=== PATIENT | female | born 1950 | race African-American/Black ===

== ENCOUNTER 2018-05-27 11:45 | Emergency (ER) | payer MEDICARE ==
[~2018-05-27] VITALS: Ht 157.5 cm; Wt 53.2 kg
[~2018-05-27 11:45] MED LIST: ATIVAN1 MG PO; BACTRIM 400-801 TAB PO; CATAPRES0.3 MG PO; CRANBERRY475 MG PO; HYDRALAZINE HCL10 MG PO; HYDRALAZINE HCL50 MG PO; LABETALOL PO; LANTUS INSULIN10 ML INJ; LANTUS INSULIN10 ML SC; LASIX40 MG PO; LONITEN2.5 MG PO; NORMODYNE / TR200 MG PO; NORVASC10 MG PO; PLAVIX75 MG PO; PROVERA10 MG PO; RENVELA800 MG PO; ROCALTROL0.25 MCG PO; SODIUM BICARBO650 MG PO; SYNTHROID100 MCG PO; SYNTHROID125 MCG PO; TRANDATE100 MG PO; TRANDATE200 MG PO; TYLENOL ARTHRITIS PO; ZESTRIL40 MG PO; ZOCOR40 MG PO
[2018-05-27 11:48] VITALS: Ht 157.5 cm; Wt 53.2 kg
[2018-05-27 12:37] LABS: BASOPHILS 0.9 % (0-2); EOSINOPHILS 5.3 % (0-7); HEMOGLOBIN 13.3 g/dL (12-16); IMMATURE GRANULOCYTES 0.3 % (0-5); LYMPHOCYTES 26.3 % (15-50); MCH 30.8 pg (26.0-34.0); MCHC 32.4 g/dL (31.0-37.0); MCV 94.9 fL (80.0-100.0); MEAN PLATELET VOLUME 9.6 fL (7.4-10.4); MONOCYTES 12.9 % (2-11); NEUTROPHILS 54.3 % (40-80); RBC 4.32 10x6/uL (4.00-5.40); WBC 3.2 10x3/uL (4.8-10.8)
[2018-05-27 12:45] LABS: PLATELET COUNT 209 10x3/uL (130-400)
[2018-05-27 12:54] LABS: ALBUMIN 3.9 g/dL (3.4-5.0); ALKALINE PHOSPHATASE 73 U/L (46-116); ALT (SGPT) 20 U/L (10-68); BILIRUBIN - TOTAL 0.64 mg/dL (0.2-1.3); CALC OSMOLALITY 280 mosm/kg (275-300); CALCIUM 9.1 mg/dL (8.5-10.1); CARBON DIOXIDE 32.4 mmol/L (21.0-32.0); CHLORIDE - SERUM 99 mmol/L (98-107); CREATININE - SERUM 5.1 mg/dL (0.6-1.3); GLUCOSE 115 mg/dL (74-106); POTASSIUM - SERUM 4.5 mmol/L (3.5-5.1); PROTEIN - SERUM 7.4 g/dL (6.4-8.2); SODIUM 139 mmol/L (136-145); UREA NITROGEN 19 mg/dL (7-18); eGFR NON AFRICAN AMERICAN 9 mL/min (90-120)
[2018-05-27 13:08] LABS: CKMB 1.5 U/L (0.0-3.6); CREATINE KINASE 141 UL (21-215); MAGNESIUM - SERUM 1.9 mg/dL (1.8-2.4); PRO BNP 5600 pg/mL (0-125)
[2018-05-27 13:09] LABS: TROPONIN-I < 0.017 ng/mL (0.000-0.060)
[2018-05-27 13:16] LABS: INR 0.98 (0.85-1.17); PROTIME 12.6 SECONDS (11.6-15.0)
[2018-05-27 13:17] LABS: APTT 34.3 SECONDS (22.8-39.4)
[2018-05-27 13:18] LABS: D-DIMER-QUANTITATIVE 0.71 ug/mLFEU (0.20-0.54)
[2018-05-27 16:27] VITALS: BP 208/96
== END 2018-05-27 16:21 | disposition home or self-care (01) ==
LOC: D.ER 11:45
PROVIDERS: Family Medicine
DX: R07.89 Other chest pain (principal); E11.9 Type 2 diabetes mellitus without complications; I10 Essential (primary) hypertension; I44.4 Left anterior fascicular block

== ENCOUNTER 2019-03-20 09:33 | Inpatient (IN) | payer MEDICARE ==
[~2019-03-20] VITALS: Ht 157.5 cm; Wt 70.9 kg
[2019-03-20] VITALS (9 sets, daily range): BP systolic 155–179; BP diastolic 83–97; BMI 26.2
--- NOTE | ~2019-03-20 | HEMODYNAMI ---
PATIENT:FRANCES BECKER MEDICAL RECORD: [id number] : 52 LOCATION[facility] [id number] ADMISSION DATE: 03/21/19 Generatedon:03/23/201911:51 Patient name: FRANCES BECKER Patient #: [id number] SSN: : 1950 Date of study: 03/23/2019 Page: Of Hemodynamic Procedure Report Patient Data Patient Demographics Procedure consent was obtained First Name: FRANCES Gender: Female Last Name: ROSITA : 1950 Middle Initial: M Age: 68 year(s) Patient #: [id number] Race: Black Additional ID: [id number] Contact details [address]: [address] [place] [address] State: [place] City: [place] Zip code: [address] Admission Admission Data Admission Date: 03/21/2019 Admission Time: 17:11 Room #: 2137 Procedure Procedure Types Cath Procedure Peripheral Cath Diagnostic Procedure Abd/Extremity Extremities Procedure Description Procedure Date Procedure Date: 03/23/2019 Procedure Start Time: 9:35 Procedure Staff Name Hilda Daniels MD Performing Physician Gerardo Zhao RT Monitor ROBYN ELIZALDE RT Scrub Susan Cobb RN Nurse Joelle Culp RN Nurse Procedure Data Cath Procedure Fluoroscopy Diagnostic fluoroscopy Total fluoroscopy Time: 42 time: 42 min min Diagnostic fluoroscopy Total fluoroscopy dose: 590 dose: 590 mGy mGy Contrast Material Contrast Material Type Amount (ml) Isovue 300 110 Entry Location Entry Primary Successful Side Size Upsize 1 Upsize Entry Closure [place] ccessful Closure Location (Fr) (Fr) 2 (Fr) Remarks Device Remarks Femoral Left 5 Fr 6 Fr Exoseal artery Mid-Length Diagnostic catheters Device Type Used For End Catheter Placement Merit Impress COBRA 2 5Fr 65CM catheter ([id number]) Procedure Medications Medication Administration Route Dosage Heparin Flush Bag added to field 3 bags (1000units/500ml NS) Lidocaine 1% added to field 20 Fentanyl I.V. 25 mcg Versed I.V. 0.5 mg Fentanyl I.V. 25 mcg Versed I.V. 0.5 mg Heparin Bolus I.V. 5000 units Fentanyl I.V. 25 mcg Versed I.V. 0.5 mg Fentanyl I.V. 25 mcg Fentanyl I.V. 25 mcg Fentanyl I.V. 25 mcg Heparin Bolus I.V. 2000 units Fentanyl I.V. 25 mcg Versed I.V. 0.5 mg Hemodynamics Rest Heart Rate: 82 (bpm) Snapshots Pre Cath Intra NCS Post Cath Vital Signs Time Heart Resp SPO2 etCO2 NIBP (mmHg) Rhythm Pain Sedation Rate (ipm) (%) (mmHg) Status Level (bpm) 9:26:31 81 15 100 32.1 149/90(125) NSR 0 (11) 10(A) , No pain 9:31:39 80 13 32.1 155/88(118) NSR 0 (11) 10(A) , No pain 9:35:49 83 14 29.9 156/87(126) NSR 0 (11) 10(A) , No pain 9:40:03 86 13 29.8 157/92(125) NSR 0 (11) 10(A) , No pain 9:44:21 85 14 92 29.2 158/86(127) NSR 0 (11) 8(A) , No pain 9:48:37 86 12 95 30.6 159/88(120) NSR 0 (11) 8(A) , No pain 9:52:55 86 11 29.9 158/87(124) NSR 0 (11) 8(A) , No pain 9:57:11 86 13 100 30.6 163/91(126) NSR 0 (11) 8(A) , No pain 10:01:25 87 16 99 29.9 163/92(129) NSR 0 (11) 8(A) , No pain 10:05:43 84 13 95 29.9 159/86(127) NSR 0 (11) 8(A) , No pain 10:09:57 90 29 30.6 167/98(136) NSR 0 (11) 8(A) , No pain 10:14:13 91 20 29.9 171/98(136) NSR 0 (11) 8(A) , No pain 10:18:31 93 14 29.9 168/99(130) NSR 0 (11) 8(A) , No pain 10:22:45 96 15 28.4 168/103(132) NSR 0 (11) 8(A) , No pain 10:27:03 97 17 26.9 173/106(140) NSR 0 (11) 8(A) , No pain 10:31:21 100 37 93 25.4 173/105(145) NSR 0 (11) 8(A) , No pain 10:35:39 101 17 91 25.4 170/103(135) NSR 0 (11) 8(A) , No pain 10:39:57 100 21 25.4 169/103(129) NSR 0 (11) 8(A) , No pain 10:44:15 100 17 25.4 166/103(138) NSR 0 (11) 8(A) , No pain 10:48:33 104 18 89 25.4 175/109(139) NSR 0 (11) 8(A) , No pain 10:52:55 105 17 91 24.6 164/106(139) NSR 0 (11) 8(A) , No pain 10:57:14 107 24 88 23.9 179/107(138) NSR 0 (11) 8(A) , No pain 11:01:36 108 19 23.1 176/110(141) NSR 0 (11) 8(A) , No pain 11:05:54 110 20 23.9 181/110(148) NSR 0 (11) 8(A) , No pain 11:10:16 109 18 87 20.9 179/117(140) NSR 0 (11) 8(A) , No pain 11:14:40 111 19 87 26.2 186/117(152) NSR 0 (11) 8(A) , No pain 11:19:00 110 18 29.1 182/110(156) NSR 0 (11) 8(A) , No pain 11:23:10 99 16 25.4 147/96(127) NSR 0 (11) 8(A) , No pain 11:27:22 96 14 29.2 160/97(146) NSR 0 (11) 8(A) , No pain 11:31:36 95 17 94 26.2 153/94(126) NSR 0 (11) 8(A) , No pain 11:36:35 97 17 98 28.4 Measuring NSR 0 (11) 8(A) , No pain 11:36:41 97 16 98 26.2 142/101(137) NSR 0 (11) 8(A) , No pain 11:40:51 96 18 99 25.4 145/95(118) NSR 0 (11) 8(A) , No pain 11:45:05 92 18 26.9 132/90(122) NSR 0 (11) 8(A) , No pain 11:50:04 94 9 100 Measuring NSR 0 (11) 8(A) , No pain 11:50:08 94 8 100 No Cuff NSR 0 (11) 8(A) , No pain Medications Time Medication Route Dose Verified Delivered Reason Notes Effectiveness by by 9:32:53 Heparin Flush added 3 M J Long M J Long used for Bag to bags MD STEPHENS procedure (1000units/500ml field NS) 9:33:11 Lidocaine 1% added 20ml M J Long M J Long used for to vial MD STEPHENS procedure field 9:42:00 Fentanyl I.V. 25 M J Long Joelle for sedation mcg MD Culp RN 9:42:13 Versed I.V. 0.5 M J Long Joelle for sedation mg MD Culp RN 9:45:36 Fentanyl I.V. 25 M J Long Joelle for sedation mcg MD Culp RN 9:45:46 Versed I.V. 0.5 M J Long Joelle for sedation mg MD Culp RN 10:31:51 Heparin Bolus I.V. 5000 M J Long Joelle for units MD Culp RN anticoagulation 10:33:43 Fentanyl I.V. 25 M J Long Joelle for sedation mcg MD Culp RN 10:33:51 Versed I.V. 0.5 M J Long Joelle for sedation mg MD Culp RN 10:42:55 Fentanyl I.V. 25 M J Long Joelle for sedation mcg MD Culp RN 10:50:11 Fentanyl I.V. 25 M J Long Joelle for sedation mcg MD Culp RN 10:57:41 Fentanyl I.V. 25 M J Long Joelle for sedation mcg MD Culp RN 10:59:08 Heparin Bolus I.V. 2000 M J Long Joelle for units MD Robbi FIGUEROA anticoagulation 11:08:44 Fentanyl I.V. 25 M Sonu Lai for sedation mcg MD Robbi FIGUEROA 11:20:41 Versed I.V. 0.5 M Sonu Lai for sedation mg MD Robbi FIGUEROA Procedure Log Time Note 9:00:00 Susan Cobb RN sent for patient. Start room use. 9:00:11 Time tracking: Regular hours (M-F 7:00 - 5:00) 9:00:17 Plan of Care:Hemodynamics will remain stable., Cardiac rhythm will remain stable., Comfort level will be maintained., Respiratory function will remain adequate., Patient/ family verbilizes understanding of procedure., Procedure tolerated without complication., Recovers from procedure without complications.. 9:00:24 Patient received from [employer] to IR Alert and oriented. Tansferred to table in Supine position. 9:00:25 Correct patient and procedure confirmed by team. 9:00:27 Signed procedure consent form obtained from patient. 9:00:29 ECG and BP/O2 sat monitors applied to patient. 9:00:30 Full Disclosure recording started 9:00:30 - 9:00:31 - 9:00:34 H&P Date Dictated: 03/23/2019 H&P Addendum completed by physician on day of procedure. (MUST COMPLETE FOR ALL OUTPATIENTS). 9:00:35 Pre-procedure instructions explained to patient. 9:00:36 Pre-op teaching completed and patient verbalized understanding. 9:00:37 Family in waiting room. 9:00:39 Patient NPO since Midnight. 9:00:46 Use device set IR Diagnostic 9:00:47 ACIST Syringe (41761) opened to sterile field. 9:00:48 ACIST Hand Control (13702) opened to sterile field. 9:00:48 ACIST Manifold (56991) opened to sterile field. 9:00:48 Bag Decanter () opened to sterile field. 9:00:49 Sterile Angiographic Pack opened to sterile field. 9:00:49 Tegaderm 4 x 4 (1626W) opened to sterile field. 9:12:17 Is the patient allergic to Iodine/contrast media? No. 9:12:20 Is patient on blood thinner?No 9:12:21 Patient diabetic? Yes. 9:12:22 If diabetic: On Metformin? No 9:12:24 - 9:12:24 ----Pre-sedation anethsthesia assessment.---- 9:12:27 Previous problem with sedation/anesthesia? No ? 9:12:29 Snore? Yes 9:12:32 Sleep apnea? No 9:12:35 Deviated septum? No 9:12:37 Opens mouth fully? N/A 9:12:46 Sticks out tongue? Yes 9:12:48 Airway obstruction? No ? 9:12:54 Dentures? Yes in tight 9:12:56 - 9:13:10 Pre procedure: right dorsailis pedis pulse Inaccessible 9:13:13 Pre procedure: left dorsailis pedis pulse Doppler 9:13:19 Pre procedure: right posterior tibial pulse Inaccessible 9:13:27 Pre procedure: left posterior tibial pulse None 9:13:33 Patient pain scale 0/10 no pain. 9:13:44 IV patent on arrival in left forearm with 0.[facility]% [facility] at [facility]. 9:28:21 Left groin area was prepped with chlora-prep and draped in sterile fashion 9:30:35 Vital chart was started 9:30:36 Baseline sample Acquired. 9:32:53 Heparin Flush Bag (1000units/500ml NS) 3 bags added to field was administered by Luna Daniels MD; used for procedure; 9:33:11 Lidocaine 1% 20ml vial added to field was administered by Luna Daniels MD; used for procedure; 9:34:52 Physician arrived 9:34:52 --------ALL STOP TIME OUT------ 9:34:53 Final Timeout: patient, procedure, and site verified with staff and physician. All members of the team are in agreement. 9:34:55 Left groin site verified by team. 9:35:02 Fire Safety Assessment: A--An alcohol-based skin anteseptic being used preoperatively., C--Open oxygen or nitrous oxide is being used. 9:35:05 Sedation plan: IV Moderate Sedation Medication:Versed, Fentanyl 9:35:17 Procedure started. 9:35:22 Local anesthetic to left femerol artery with Lidocaine 1% by Luna Daniels MD.INITIAL ACCESS ONLY 9:37:10 DOC .035 wire (A40718) opened to sterile field. 9:37:10 GR 260 wire (Q23006) opened to sterile field. 9:37:11 Angiodynamics Omniflush 5Fr 65cm ([id number]) opened to sterile field. 9:37:11 Micropuncture VSI 4FR kit opened to sterile field. 9:37:12 SHEATH 5FR [place] (OTJ498) opened to sterile field. 9:37:12 SHEATH 6FR Destination (RSR01) opened to sterile field. 9:37:25 A 5 Fr sheath was inserted into the Left Femoral artery 9:42:00 Fentanyl 25 mcg I.V. was administered by Joelle Culp RN; for sedation; 9:42:13 Versed 0.5 mg I.V. was administered by Joelle Culp RN; for sedation; 9:45:36 Fentanyl 25 mcg I.V. was administered by Joelle Culp RN; for sedation; 9:45:46 Versed 0.5 mg I.V. was administered by Joelle Culp RN; for sedation; 9:50:40 GLIDE CATHETER 5FR ANGLED 65cm (CG507) opened to sterile field. 9:50:41 TORQUE DEVICE PLASTIC .038 ( TD01) opened to sterile field. 9:50:47 GLIDE WIRE MERIT Angled 260cm ([id number]) opened to sterile field. 9:51:45 INFLATOR BasixTOUCH (AZ1181) opened to sterile field. 9:53:45 A Merit Impress COBRA 2 5Fr 65CM catheter ([id number]) was advanced over the wire and used for . 9:56:27 Sheath upsized to a 6 Fr Mid-Length. 9:57:58 CXI SUPPORT .035 135 CM STR catheter (K34611) opened to sterile field. 10:06:20 ROADRUNNER .035 260 glide wire (F52857) opened to sterile field. 10:26:43 CHOICE PT Extra Support J 300cm guide wire ([id number]) opened to steril e field. 10:31:51 Heparin Bolus 5000 units I.V. was administered by Joelle Culp RN; for anticoagulation; 10:33:43 Fentanyl 25 mcg I.V. was administered by Joelle Culp RN; for sedation; 10:33:51 Versed 0.5 mg I.V. was administered by Joelle Culp RN; for sedation; 10:34:58 Inflate balloon Inflation number: 1 A [place] Plus 2.5x 80 x 130 Balloo n ([id number]) was prepped and advanced across the Undefined1, then inflated to 14 MAYRA for 0:32 (min:sec). 10:37:55 Hawkone Medium Atherectomy System (H1-M) opened to sterile field. 10:42:55 Fentanyl 25 mcg I.V. was administered by Joelle Culp RN; for sedation; 10:50:11 Fentanyl 25 mcg I.V. was administered by Joelle Culp RN; for sedation; 10:57:41 Fentanyl 25 mcg I.V. was administered by Joelle Culp RN; for sedation; 10:59:08 Heparin Bolus 2000 units I.V. was administered by Joelle Culp RN; for anticoagulation; 11:04:20 Inflate balloon Inflation number: 2 A IN.PACT Admiral 5 x 120 x 130 DCB Balloon ([id number]) was prepped and advanced across the Undefined1, then inflated to 8 MARYA for 1:05 (min:sec). 11:08:44 Fentanyl 25 mcg I.V. was administered by Joelle Culp RN; for sedation; 11:20:41 Versed 0.5 mg I.V. was administered by Joelle Culp RN; for sedation; 11:21:29 Inflate balloon Inflation number: 3 A IN.PACT Admiral 5 x 80 x 130 DCB Balloon ([id number]) was prepped and advanced across the Undefined1, then inflated to 8 MAYRA for 2:57 (min:sec). 11:25:33 Inflate balloon Inflation number: 4 A [place] 6 x 4 x 135 Balloon ([id number]) was prepped and advanced across the Undefined1, then inflated to 8 MAYRA for 0:05 (min:sec). 11:25:40 SHEATH 6FR [place] (KGR919) opened to sterile field. 11:30:24 EXOSEAL 6Fr (EX600) opened to sterile field. 11:31:54 Sheath removed intact; hemostasis achieved with Exoseal to the Left Femoral artery. 11:31:59 Procedure ended.(Physican Out) 11:32:18 Fluoroscopy time 42.00 minutes. 11:32:25 Fluoroscopy dose: 590 mGy 11:32:25 Flurop Dose total: 590 11:36:17 Insertion/operative site no bleeding no hematoma. 11:36:21 Post-op/insertion site Left Femoral artery dressed using a 4 x 4 and Tegaderm. 11:36:37 Post left femerol artery:stable 11:40:19 Contrast amount:Isovue 300 110ml. 11:40:28 Post Procedure Pulses reassessed and unchanged 11:40:32 Procedure and supply charges have been captured, reviewed, submitted an d are correct. 11:48:19 Report given to [facility]. 11:48:29 Patient transfered to [facility] with Stretcher. 11:51:00 Vital chart was stopped Intervention Summary Intervention Notes Time ActionType Lesion and Equipment Used Action# Pressure Duration Attributes 10:34:58 Inflate Undefined1 [place] Plus 1 14 00:32 balloon 2.5x 80 x 130 Balloon ([id number]) 11:04:20 Inflate Undefined1 IN.PACT Admiral 2 8 01:05 balloon 5 x 120 x 130 DCB Balloon ([id number]) 11:21:29 Inflate Undefined1 IN.PACT Admiral 3 8 02:57 balloon 5 x 80 x 130 DCB Balloon ([id number]) 11:25:33 Inflate Undefined1 [place] 6 x 4 4 8 00:05 balloon x 135 Balloon ([id number]) Device Usage Item Name Manufacture Quantity Catalog Number Hospital Part Current Minimal Lot# / Charge Number Stock Stock Serial# Code ACIST Syringe Acist Medical 1 25308 930224 116827 812854 20 (83813) Systems Inc ACIST Hand Acist Medical 1 31658 604718 529082 557734 5 Control (80318) Systems Inc ACIST Manifold Acist Medical 1 61895 876901 010929 800054 5 (88931) Systems Inc Bag Decanter Microtek 1 2001S 953669 45853 236066 5 () Medical Inc. Sterile Cardinal 1 [id number] 962310 407269 5 Angiographic Health Pack Tegaderm 4 x 4 3M 1 1626W 226827 491550 376084 5 (1626W) DOC .035 wire Cook Medical 1 M68309 195206 770462 5 (T88832) GR 260 wire Cook Medical 1 Z99140 085132 85442 289495 5 (S58012) Angiodynamics Angiodynamics 1 97731569 482755 934639 855589 5 Omniflush 5Fr 65cm (55444077) Micropuncture VSI VASCULAR 1 7266V 156322 066954 5 VSI 4FR kit SOLUTIONS SHEATH 5FR Terumo 1 MJO854 063315 820607 730493 5 [place] (GRA884) SHEATH 6FR Terumo 1 RSR01 458289 60644 409149 5 Destination (RSR01) GLIDE CATHETER Terumo 1 CG507 421345 763331 5 5FR ANGLED 65cm (CG507) TORQUE DEVICE Mcleod 1 TD01 481849 153722 943334 5 PLASTIC .038 ( Scientific TD01) GLIDE WIRE TILE Financial Medical 1 [id number] 296031 864962 068221 5 [id number] MERIT Angled 260cm ([id number]) INFLATOR Merit Medical 1 ZM8904 149669 460936 865386 5 BasixTOUCH (IN7220) Merit Impress [facility] Medical 1 [id number] 716919 332309 163664 5 COBRA 2 5Fr 65CM catheter (099196SC7) CXI SUPPORT [facility] 1 O06600 133649 010061 275390 5 [id number] .035 135 CM STR catheter (M30593) ROADRUNNER .035 Cook [facility] 1 I81109 917853 784893 615116 5 3921441 260 glide wire (J94783) CHOICE PT Extra Mcleod 1 [id number] 812157 332155 258686 5 96902524 Support J 300cm Scientific guide wire (6353261N7) [place] Plus Medtronic 1 [id number] 352214 618510 7025213 5 [id number] 2.5x 80 x 130 Balloon ([id number]) Hawkone Medium Medtronic 1 H1-M 967907 66870559 5 [id number] Atherectomy System (H1-M) IN.PACT Admiral Medtronic 1 [id number] 303573 924278 218068 5 [id number] 5 x 120 x 130 DCB Balloon ([id number]) IN.PACT Admiral Medtronic 1 [id number] 607938 156078 008899 5 [id number] 5 x 80 x 130 DCB Balloon ([id number]) Ever[place] 6 x 4 Medtronic 1 [id number] 306027 166093 950697 5 [id number] x 135 Balloon ([id number]) SHEATH 6FR Terumo 1 PGN905 239057 560696 820371 40 [place] (RLM338) EXOSEAL 6Fr Cardinal 1 EX600 125610 337503 906640 10 [id number] (EX600) Health Signature Audit [place] Stage Time Signature Unsigned Intra-Procedure 03/23/2019 Gerardo 11:50:56 AM [place] RT (R) (CV) Signatures Monitor : Gerardo Signature : [place] RT Date : Time : [place] [address] [place] [address]
[~2019-03-20 09:33] MED LIST changes: -SYNTHROID125 MCG PO
[2019-03-20] MEDS ORDERED: GABAPENTIN100 MG PO (09:49)
[2019-03-20] MEDS ORDERED: VANCOCIN HCL250 MG PO (09:50)
[2019-03-20 10:43] LABS: BASOPHILS 0.4 % (0-2); EOSINOPHILS 3.4 % (0-7); HEMATOCRIT 27.3 % (36.0-48.0); HEMOGLOBIN 8.6 g/dL (12-16); IMMATURE GRANULOCYTES 0.3 % (0-5); MCH 30.8 pg (26.0-34.0); MCHC 31.5 g/dL (31.0-37.0); MCV 97.8 fL (80.0-100.0); MEAN PLATELET VOLUME 9.2 fL (7.4-10.4); MONOCYTES 10.3 % (2-11); NEUTROPHILS 70.6 % (40-80); RBC 2.79 10x6/uL (4.00-5.40); RDW 16.3 % (11.5-14.5); WBC 7.1 10x3/uL (4.8-10.8)
[2019-03-20 10:44] LABS: PLATELET COUNT 305 10x3/uL (130-400)
[2019-03-20 11:16] LABS: INR 1.11 (0.85-1.17); PROTIME 13.8 SECONDS (11.6-15.0)
[2019-03-20 11:18] LABS: ALBUMIN 2.5 g/dL (3.4-5.0); ANION GAP 20.5 mmol/L (8-16); BILIRUBIN - TOTAL 0.31 mg/dL (0.2-1.3); CALCIUM 8.3 mg/dL (8.5-10.1); CREATININE - SERUM 6.6 mg/dL (0.6-1.3); POTASSIUM - SERUM 4.5 mmol/L (3.5-5.1); PROTEIN - SERUM 6.3 g/dL (6.4-8.2); URIC ACID 4.5 mg/dL (2.6-7.2)
--- NOTE | 2019-03-20 13:08 | NUR ---
PT RESTING WITH EYES CLOSED. AROUSES WHEN NAME CALLED. STATES, "I'M SLEEPY, BUT MY FEET/LEGS STILL HURT" VSS. FAMILY AT BS
--- NOTE | 2019-03-20 16:29 | NUR ---
RENAL DIET SERVED
--- NOTE | 2019-03-20 17:04 | NUR ---
REPORT CALLED TO CAROLINA CHANDLER BY SBAR FORMAT
[2019-03-20] MEDS ORDERED: SENSIPAR90 MG PO (17:28)
--- NOTE | 2019-03-20 19:00 | NUR ---
PATIENT LAYING IN BED. NO COMPLAINTS AT THIS TIME. NO DISTRESS NOTED. FAMILY AT BEDSIDE.
--- NOTE | 2019-03-20 23:39 | NUR ---
PATIENT SITTING UP IN BED. NO COMPLAINTS AT THIS TIME. NO DISTRESS NOTED. FAMILY AT BEDSIDE.
--- NOTE | 2019-03-21 02:06 | NUR ---
I have reviewed this patient and I concur with the Shift Assessment completed by the Licensed Practical Nurse today this shift.
[2019-03-21 03:45] VITALS: BP 172/82
[2019-03-21 06:26] LABS: BASOPHILS 0.4 % (0-2); EOSINOPHILS 5.6 % (0-7); HEMATOCRIT 29.7 % (36.0-48.0); HEMOGLOBIN 9.1 g/dL (12-16); IMMATURE GRANULOCYTES 0.4 % (0-5); LYMPHOCYTES 12.5 % (15-50); MCH 30.4 pg (26.0-34.0); MCHC 30.6 g/dL (31.0-37.0); MCV 99.3 fL (80.0-100.0); MEAN PLATELET VOLUME 9.5 fL (7.4-10.4); MONOCYTES 13.3 % (2-11); NEUTROPHILS 67.8 % (40-80); PLATELET COUNT 352 10x3/uL (130-400); RBC 2.99 10x6/uL (4.00-5.40); RDW 16.4 % (11.5-14.5)
[2019-03-21 06:28] LABS: CALCIUM 8.2 mg/dL (8.5-10.1); CARBON DIOXIDE 23.7 mmol/L (21.0-32.0); MAGNESIUM - SERUM 1.9 mg/dL (1.8-2.4); PHOSPHOROUS 7.3 mg/dL (2.5-4.9); POTASSIUM - SERUM 4.7 mmol/L (3.5-5.1)
--- NOTE | 2019-03-21 07:11 | NUR ---
AM ROUNDS- PT RESTING COMFORTABLY IN BED, WITH EYES CLOSED, EASILY AROUSES TO VOICE. RESP EVEN AND NONLABORED ON 2L. RT PEDAL PULSE HEAR VIA DOPPLER. LT FA IV SL. RT ARM FISTULA NOTED WITH THRILL AND BRUIE. PT DENIES ANY NEEDS AT THIS TIME. CALL LIGHT IN REACH, NAD NOTED, FAMILY AT BEDSIDE, WILL CONTINUE PLANO OF CARE.
[2019-03-21 07:55] VITALS: BP 165/88
--- NOTE | 2019-03-21 09:02 | NUR ---
EXPLAINED RATIONAL FOR SCDS TO PT, PT REFUSED TO WEAR SCDS AT THIS TIME, DUE TO PAIN TO RT LEG AND LT LEG HAS WOUNDS WITH DRESSING IN PLACE.
--- NOTE | 2019-03-21 10:07 | NUR ---
GAVE 50MG OF DEMEROL FOR PAIN LEVEL OF 7/10. PT DENIES ANY OTHER NEEDS AT THIS TIME. WAITING ON DOCTOR TO ROUND. CALL LIGHT IN REACH, FAMILY AT BEDSIDE, NAD NOTED, WILL CONTINUE TO MONITOR.
[2019-03-21 12:06] VITALS: BP 171/88
[2019-03-21 13:24] VITALS: Ht 157.5 cm; Wt 70.9 kg
[2019-03-21 16:30] VITALS: BP 164/86
[2019-03-21] MEDS ORDERED: GENTAMICIN SULF30 G1 TOPICAL (16:52)
[2019-03-21] MEDS ORDERED: MUPIROCIN22 GM TOPICAL (16:52)
--- NOTE | 2019-03-21 17:42 | NUR ---
DRESSING CHANGE TO LT LOWER LEG. CLEANED WITH WOUND REGISTERED MEDICAL ASSISTANT AND COVERED WITH ADAPTIC AND 4X4 GUAZE AND COVERED WITH KERLEX. PT TOLERATED WELL, DENIES ANY NEEDS AT THIS TIME. CALL LIGHT IN REACH, FAMILY AT BEDSIDE. NAD NOTED.
[2019-03-21 19:09] LABS: CHOL - HDL RATIO 2.2 ratio (2.3-4.1); LDL-HDL RATIO 0.6 ratio (1.5-3.5)
--- NOTE | 2019-03-21 19:39 | NUR ---
EVENING ROUNDS COMPLETED. REPORT RECEIVED. PT SITTING UP IN BED WITH EYES OPEN, RR EVEN AND UNLABORED. BED IN LOW POSITION. NO S/S OF DISTRESS NOTED. INTRODUCED SELF TO PT. PT REQUESTS ASSISTANCE IN REPOSITIONING, ASSISTED BY DAUGHTER. PT DENIES FURTHER NEEDS AT THIS TIME. CALL LIGHT IN REACH. WILL CTM.
[2019-03-21 21:24] VITALS: BP 154/90
[2019-03-22 00:43] VITALS: BP 120/73
--- NOTE | 2019-03-22 05:31 | NUR ---
I have reviewed this patient and I concur with the Shift Assessment completed by the Licensed Practical Nurse today this shift.
--- NOTE | 2019-03-22 05:36 | NUR ---
PT SITTING UP IN BED WITH EYES OPEN, RR EVEN AND UNLABORED. BED IN LOW POSITION. NO S/S OF DISTRESS NOTED. CALL LIGHT IN REACH. WILL CTM.
[2019-03-22 05:37] VITALS: BP 153/90
--- NOTE | 2019-03-22 07:25 | NUR ---
PT RESTING IN BED, EYES OPEN. FAMILY AT BEDSIDE. ALERT AND ORIENTED. UP WITH ASSIST. DRESSING TO LEFT LEG INTACT. BILATERAL WEAK PEDAL PULSES. FISTULA TO RIGHT ARM, RIGHT ARM RESERVE. NO URINE OUTPUT. ON 2L O2, NC. IV'S TO LEFT HAND AND LEFT FOREARM, SITES PATENT WITHOUT REDNESS OR SWELLING. SITES SL. NO C/O PAIN, NO S/S OF ACUTE DISTRESS NOTED. PT DENIES ANYTHING FURTHER AT THIS TIME. CALL LIGHT IN REACH. WILL CONTINUE TO MONITOR.
[2019-03-22 07:56] VITALS: BP 143/81
--- NOTE | 2019-03-22 10:38 | NUR ---
I have reviewed this patient and I concur with the Shift Assessment completed by the Licensed Practical Nurse today this shift.
--- NOTE | 2019-03-22 12:15 | NUR ---
RECEIVED PT FROM DIALYSIS. TOOK 2.5L OF FLUID OFF TODAY. VITALS STABLE, BP ELEVATED SLIGHTLY.
[2019-03-22 15:55] VITALS: BP 123/69
--- NOTE | 2019-03-22 18:32 | NUR ---
PT RESTING IN BED, EYES OPEN. NO C/O PAIN. NO S/S OF ACUTE DISTRESS NOTED. CALL LIGHT IN REACH. WILL CONTINUE TO MONITOR.
--- NOTE | 2019-03-22 20:02 | NUR ---
PT SITTING UP ON THE SIDE OF BED ALERT AND ORIENTED WITH JARED AT BEDSIDE. PT DENIES ANY PAIN OR NEEDS AT THIS TIME. BED LOW CALL LIGHT WITHIN REACH WILL CONTINUE TO MONITOR.
[2019-03-22 20:28] VITALS: BP 148/87
--- NOTE | 2019-03-23 00:07 | NUR ---
I have reviewed this patient and I concur with the Shift Assessment completed by the Licensed Practical Nurse today this shift.
[2019-03-23 00:14] VITALS: BP 123/65
--- NOTE | 2019-03-23 00:24 | NUR ---
PT RESTING IN BED WITH EYES CLOSED RR EVEN AND UNLABORED. DUAGHTER AT BED SIDE. PT NPO STATUS ON DOOR. NO S/S OF DISTRESS WILL CONTINUE TO MONITOR.
[2019-03-23 04:46] VITALS: BP 139/84
[2019-03-23 06:11] LABS: BASOPHILS 0.3 % (0-2); EOSINOPHILS 5.6 % (0-7); HEMATOCRIT 26.2 % (36.0-48.0); HEMOGLOBIN 8.5 g/dL (12-16); IMMATURE GRANULOCYTES 0.3 % (0-5); LYMPHOCYTES 14.4 % (15-50); MCHC 32.4 g/dL (31.0-37.0); MEAN PLATELET VOLUME 9.2 fL (7.4-10.4); NEUTROPHILS 62.4 % (40-80); PLATELET COUNT 308 10x3/uL (130-400); RBC 2.74 10x6/uL (4.00-5.40); RDW 16.1 % (11.5-14.5); WBC 6.9 10x3/uL (4.8-10.8)
[2019-03-23 06:19] LABS: INR 1.08 (0.85-1.17); PROTIME 13.5 SECONDS (11.6-15.0)
[2019-03-23 06:20] LABS: APTT 54.9 SECONDS (22.8-39.4)
[2019-03-23 06:47] LABS: ANION GAP 26.1 mmol/L (8-16); CALCIUM 8.6 mg/dL (8.5-10.1); CARBON DIOXIDE 22.1 mmol/L (21.0-32.0); CREATININE - SERUM 8.2 mg/dL (0.6-1.3); PHOSPHOROUS 7.8 mg/dL (2.5-4.9); POTASSIUM - SERUM 5.2 mmol/L (3.5-5.1); THYROID STIMULATING HORMONE 2.27 uIU/mL (0.36-3.74); VANCOMYCIN - RANDOM 18.3 ug/mL (10.0-20.0)
[2019-03-23 06:54] LABS: MCV 95.6 fL (80.0-100.0)
[2019-03-23 08:15] VITALS: BP 142/80
[2019-03-23 15:24] VITALS: BP 123/85
--- NOTE | 2019-03-23 19:20 | NUR ---
PT SITTING ON SIDE OF BED. RIGHT AND LEFT LOWER EXTREM DRSG CDI. LEFT GROIN CDI NO HEMATOMA NOTED. LEFT FOOT +2 EDEMA PEDAL PULSE WEAK, RIGHT AVF NOTED SIGN UP IN ROOM. BRUIT AND THRILL WNL. LEFT FOREARM PIV S/L FAMILY AT BEDSIDE. PT IS AAO DENIES ANY NEEDS. NO S/S OF DISTRESS. S1S2 RRR LUNGS HAS RHONCI, GASTRO HYPERACTIVE LEFT UPPER AND LOWER QUADS HAVE TYMPANIC SOUNDS. PT STATES STILL PRODUCES A SCANT AMOUNT OF URINE. PT WILL CALL FOR ASSIST WHEN NEEDED. WILL CPOC
--- NOTE | 2019-03-23 21:20 | NUR ---
PT COMPLAINS OF BILATERAL LOWER EXTREM PAIN. DILAUDID GIVEN ORDERED. PT BEDLOW AND CALL LIGHT IN REACH. DID NOT GIVE CATAPRES BP IS 117/66 PT WILL CALL FOR ASSIST WHEN NEEDED. FAMILY AT BEDSIDE. WILL CPOC
[2019-03-23 22:50] VITALS: BP 117/66
--- NOTE | 2019-03-24 00:37 | NUR ---
PT ASKING FOR PAIN MEDICATION. UNABLE TO GIVE DILAUDID AT THIS TIME. ATIVAN GIVEN. EDUCATION GIVEN ON ATIVAN. PT VERBALIZED UNDERSTANDING. ATIVAN GIVEN FOR ANXIETY AND RESTLESSNESS. PT WILL CALL IF STILL AWAKE AND HURTING AFTER 0130 IF NEEDING PAIN MEDICAITON
--- NOTE | 2019-03-24 03:44 | NUR ---
PT COMPLAINS OF PAIN IN LOWER EXTREM. DILAUDID GIVEN ORDERED. PT DENIES ANY OTHER NEEDS. WILL CPOC
[2019-03-24 05:14] VITALS: BP 148/81
[2019-03-24 06:31] LABS: BASOPHILS 0.4 % (0-2); EOSINOPHILS 5.1 % (0-7); IMMATURE GRANULOCYTES 0.5 % (0-5); LYMPHOCYTES 13.5 % (15-50); MCH 30.5 pg (26.0-34.0); MCV 95.4 fL (80.0-100.0); MEAN PLATELET VOLUME 9.3 fL (7.4-10.4); MONOCYTES 17.3 % (2-11); NEUTROPHILS 63.2 % (40-80); PLATELET COUNT 302 10x3/uL (130-400); RBC 2.62 10x6/uL (4.00-5.40); RDW 15.8 % (11.5-14.5); WBC 7.9 10x3/uL (4.8-10.8)
[2019-03-24 07:00] LABS: ANION GAP 22.5 mmol/L (8-16); CALCIUM 8.7 mg/dL (8.5-10.1); CARBON DIOXIDE 21.8 mmol/L (21.0-32.0)
[2019-03-24 07:03] LABS: PHOSPHOROUS 9.3 mg/dL (2.5-4.9)
[2019-03-24 07:05] LABS: POTASSIUM - SERUM 6.3 mmol/L (3.5-5.1)
[2019-03-24 07:27] VITALS: BP 141/79
[2019-03-24 11:10] VITALS: BP 135/73
--- NOTE | 2019-03-24 12:35 | NUR ---
Admitted 03/20/19 with chronic wounds on left lower extremity. Patches of escar around most of left calf/dias. She is being seen by Dr. Rivera at [facility] wound clinic for treatment. Pt complains of pain in right leg and wounds are noted on right foot/toes. Had RLE arteriogram on 03/23/19. Dr. Rushing has wound care orders entered. Will monitor as needed.
[2019-03-24] MEDS ORDERED: PLAVIX75 MG PO (14:43)
[2019-03-24 15:22] VITALS: BP 140/76
--- NOTE | 2019-03-24 17:10 | MORECARE ---
CASE MANAGEMENT DISCHARGE SUMMARY PATIENT: FRANCES BECKER UNIT: [id number] ADM DATE: 03/21/19 AGE: 68 : 51 SEX: F ROOM/BED: D.2137 AUTHOR: NYLA MASTERSON PHYSICIAN: REFERRING PHYSICIAN: ALEX NAM MD DATE OF SERVICE: 03/24/19 Discharge Plan Patient Name: FRANCES BECKER Facility: [facility]:[place] : 1950 Planned Disposition: Home Anticipated Discharge Date: Discharge Date: Expected LOS: Initial Reviewer: [email or web address] Initial Review Date: 03/24/2019 Generated: 03/24/19 6:09 pm Patient Name: FRANCES BECKER Page 01738 at 1710 All edits/amendments must be made on the electronic document DICTATION DATE: 03/24/191708 CUSTOMER SUCCESS DIRECTOR: LATISHA 03/24/191708 RPT#: [id number] DC DATE: STATUS: ADM IN [facility] [address] [place] [address] END OF REPORT
--- NOTE | 2019-03-24 17:19 | MORECARE ---
CASE MANAGEMENT DISCHARGE SUMMARY PATIENT: FRANCES BECKER UNIT: [id number] ADM DATE: 03/21/19 AGE: 68 : 51 SEX: F ROOM/BED: D.7735 AUTHOR: NYLA MASTERSON PHYSICIAN: REFERRING PHYSICIAN: ALEX NAM MD DATE OF SERVICE: 03/24/19 Discharge Plan Patient Name: FRANCES BECKER Facility: [facility]:[place] : 1950 Planned Disposition: Home Anticipated Discharge Date: Discharge Date: Expected LOS: Initial Reviewer: [email or web address] Initial Review Date: 03/24/2019 Generated: 03/24/19 6:19 pm Comments DCP- Discharge Planning Updated by [email or web address]: Osvaldo Fiore on 03/24/19 4:[address] Patient Name: FRANCES BECKER Admission Status: ER Accout number: [id number] Admission Date: 03-21-2019 : 1950 Admission Diagnosis: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 FRANCES BECKER provided verbal consent to discuss current and ongoing needs with/in the presence of: REED SHARP. PT REPORTS LIVING AT HOME INDEPENDENTLY WITH HER SPOUSE. PT HAS WALKER WITH SEAT AND BRAKES, CANE, AND GRAB BARS IN THE BATHROOM. PT'S MEDICAL EQUIPMENT PROVIDER IS [facility]. PT HAS NO OUTSIDE SERVICES ASSISTING IN THE HOME. CM DISCUSSED AVAILABILITY OF HOME HEALTH, REHAB SERVICES AND MEDICAL EQUIPMENT. PT DENIES DISCHARGE NEEDS, REPORTS HER DAUGHTER OR SPOUSE WILL PICK HER UP FOR DISCHARGE HOME. IMPORTANT MESSAGE FROM MEDICARE PROVIDED AND EXPLAINED. PT WILL CONSIDER HOME HEALTH AND WILL NOTIFY CM IF THEY WANT HOME HEALTH. PROVIDER LISTING GIVEN. PT PLANS TO DISCHARGE HOME WITH SPOUSE, IS CONSIDERING HOME HEALTH SERVICES AT DISCHARGE IF NEEDED. CM TO ARRANGE IF PT IS IN AGREEMENT AND WITH PHYSICIAN AGREEMENT AND HOME HEALTH ORDERS. Monkey Trainer: Osvaldo Fiore DCPIA - Discharge Planning Initial Assessment Updated by [id number]: Osvaldo Fiore on 03/24/19 5:10 pm * Is the patient Alert and Oriented? Yes * How many steps to enter\exit or inside your home? 5 W/RAIL * PCP DR. CASTRO, [facility] KUMAR, [facility] IN [place] * Pharmacy [facility] [place] * Preadmission Environment Home with Family * ADLs Independent * Equipment Cane Grab Bars Rolling Walker * Other Equipment WALKER WITH SEAT AND BRAKES * List name and contact numbers for known caregivers / representatives who currently or will assist patient after discharge: PAM BECKER, SPOUSE, LILA DAUGHERTY, DTR, * Verbal permission to speak to the caregivers and representatives has been obtained from the patient. Yes * Community resources currently utilized Other * Please name any agencies selected above. [facility], [facility], [facility], [facility], [facility] * Additional services required to return to the preadmission environment? No * Can the patient safely return to the preadmission environment? Yes * Has this patient been hospitalized within the prior 30 days at any hospital? No Coverage Notice Reviewer: [id number] - Osvaldo Fiore Notice Issued Date-Time: 03/24/2019 9:20 Notice Type: IM Discharge Notice Notice Delivered To: Family Member Relationship to Patient: Daughter Tank Bottom Assembler Name: LILA DAUGHERTY Delivery Method: HAND - Hand Delivered Zara Days: Prior Verbal Notification: Recipient Understood Notice: Yes Recipient Signature: Yes Med Rec Note Co-signed by Attending: Coverage Notice Comment: Last DP export: 03/24/19 4:10 p Patient Name: FRANCES BECKER Page 47104 at 1719 All edits/amendments must be made on the electronic document DICTATION DATE: 03/24/191718 CREATIVE DESIGNER: LATISHA 03/24/191718 RPT#: [id number] DC DATE: STATUS: ADM IN [facility] [address] [place] [address] END OF REPORT
--- NOTE | 2019-03-24 19:49 | NUR ---
PT STILL IN DIALYSIS. AWAITING PATIENT RETURN TO COMPLETE DISCHARGE. FAMILY IN ROOM. WILL CPOC
--- NOTE | 2019-03-24 20:30 | NUR ---
PT PICKED UP FROM DIALYSIS. WENT OVER DISCHARGE INSTRUCTIONS AND EDUCATION. PT AND FAMILY VERBALIZED UNDERSTANDING, DENIES ANY QUESTIONS OR CONCERNS. ASSISTED WITH PT GETTING DRESSED.
--- NOTE | 2019-03-24 20:44 | NUR ---
NIGHT MEDS GIVEN, DISCHARGE PAPERS SIGNED DENIES ANY QUESTIONS OR CONCERNS.
--- NOTE | 2019-03-24 21:26 | NUR ---
PT TAKEN TO VEHICLE VIA WHEELCHAIR. ALL BELONGINGS WITH PT,
--- NOTE | 2019-03-25 08:31 | MORECARE ---
CASE MANAGEMENT DISCHARGE SUMMARY PATIENT: FRANCES BECKER UNIT: [id number] ADM DATE: 03/21/19 AGE: 68 : 51 SEX: F ROOM/BED: D.3415 AUTHOR: NYLA MASTERSON PHYSICIAN: REFERRING PHYSICIAN: ALEX NAM MD DATE OF SERVICE: 03/25/19 Discharge Plan Patient Name: FRANCES BECKER Facility: [facility]:[place] : 1950 Planned Disposition: Home Anticipated Discharge Date: 03/24/19 Discharge Date: 03/24/2019 Expected LOS: 3 Initial Reviewer: [email or web address] Initial Review Date: 03/24/2019 Generated: 03/25/19 9:31 am Comments DCP- Discharge Planning Updated by [email or web address]: Osvaldo Fiore on 03/24/19 4:[address] Patient Name: FRANCES BECKER Admission Status: ER Accout number: [id number] Admission Date: 03-21-2019 : 1950 Admission Diagnosis: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 FRANCES BECKER provided verbal consent to discuss current and ongoing needs with/in the presence of: REED SHARP. PT REPORTS LIVING AT HOME INDEPENDENTLY WITH HER SPOUSE. PT HAS WALKER WITH SEAT AND BRAKES, CANE, AND GRAB BARS IN THE BATHROOM. PT'S MEDICAL EQUIPMENT PROVIDER IS [facility]. PT HAS NO OUTSIDE SERVICES ASSISTING IN THE HOME. CM DISCUSSED AVAILABILITY OF HOME HEALTH, REHAB SERVICES AND MEDICAL EQUIPMENT. PT DENIES DISCHARGE NEEDS, REPORTS HER DAUGHTER OR SPOUSE WILL PICK HER UP FOR DISCHARGE HOME. IMPORTANT MESSAGE FROM MEDICARE PROVIDED AND EXPLAINED. PT WILL CONSIDER HOME HEALTH AND WILL NOTIFY CM IF THEY WANT HOME HEALTH. PROVIDER LISTING GIVEN. PT PLANS TO DISCHARGE HOME WITH SPOUSE, IS CONSIDERING HOME HEALTH SERVICES AT DISCHARGE IF NEEDED. CM TO ARRANGE IF PT IS IN AGREEMENT AND WITH PHYSICIAN AGREEMENT AND HOME HEALTH ORDERS. Mold Parter: Osvaldo Fiore DCPIA - Discharge Planning Initial Assessment Updated by [id number]: Osvaldo Fiore on 03/24/19 5:10 pm * Is the patient Alert and Oriented? Yes * How many steps to enter\exit or inside your home? 5 W/RAIL * PCP DR. CASTRO, [facility], [facility] IN [place] * Pharmacy [facility] IN [place] * Preadmission Environment Home with Family * ADLs Independent * Equipment Cane Grab Bars Rolling Walker * Other Equipment WALKER WITH SEAT AND BRAKES * List name and contact numbers for known caregivers / representatives who currently or will assist patient after discharge: PAM BECKER, SPOUSE, PARULPURNIMA DAUGHERTY, DTR, * Verbal permission to speak to the caregivers and representatives has been obtained from the patient. Yes * Community resources currently utilized Other * Please name any agencies selected above. OUTPATIENT DIALYSIS, [facility], [facility], [facility], [facility] * Additional services required to return to the preadmission environment? No * Can the patient safely return to the preadmission environment? Yes * Has this patient been hospitalized within the prior 30 days at any hospital? No Coverage Notice Reviewer: [id number] - Osvaldo Fiore Notice Issued Date-Time: 03/24/2019 9:20 Notice Type: IM Discharge Notice Notice Delivered To: Family Member Relationship to Patient: Daughter Manager Rn Case Name: LILA DAUGHERTY Delivery Method: HAND - Hand Delivered Zara Days: Prior Verbal Notification: Recipient Understood Notice: Yes Recipient Signature: Yes Med Rec Note Co-signed by Attending: Coverage Notice Comment: Last DP export: 03/24/19 4:19 p Patient Name: FRANCES BECKER Page 42452 at 0831 All edits/amendments must be made on the electronic document DICTATION DATE: 03/25/19830 ACOUSTICAL TILE PATTERNMAKER: LATISHA 03/25/19830 RPT#: [id number] DC DATE:03/24/19 STATUS: DIS IN [facility] [address] [place] [address] END OF REPORT
== END 2019-03-24 21:31 | disposition home or self-care (01) | DRG 270 ==
LOC: D.ER 09:33 → D.M2 16:55 → OBSVTIME 03-21 16:58 → D.M2 03-21 17:11
PROVIDERS: Family Medicine; Internal Medicine Nephrology; Radiology Vascular & Interventional Radiology; ADMIT Internal Medicine Nephrology; ATTEND Internal Medicine Nephrology
PROC: 5A1D70Z Performance of Urinary Filtration, Intermittent, Less than 6 Hours Per Day (ICD-10-PCS; 2019-03-22)
PROC: 047K3Z1 Dilation of Right Femoral Artery using Drug-Coated Balloon, Percutaneous Approach (ICD-10-PCS; 2019-03-23)
PROC: 04CK3ZZ Extirpation of Matter from Right Femoral Artery, Percutaneous Approach (ICD-10-PCS; principal; 2019-03-23 09:20)
DX: E11.51 Type 2 diabetes mellitus with diabetic peripheral angiopathy without gangrene (principal); N18.6 End stage renal disease; L97.222 Non-pressure chronic ulcer of left calf with fat layer exposed; I12.0 Hypertensive chronic kidney disease with stage 5 chronic kidney disease or end stage renal disease; N25.81 Secondary hyperparathyroidism of renal origin; E11.622 Type 2 diabetes mellitus with other skin ulcer; E83.59 Other disorders of calcium metabolism; E11.22 Type 2 diabetes mellitus with diabetic chronic kidney disease; Z99.2 Dependence on renal dialysis; E78.5 Hyperlipidemia, unspecified; D50.9 Iron deficiency anemia, unspecified; D63.1 Anemia in chronic kidney disease; E03.9 Hypothyroidism, unspecified

== ENCOUNTER 2019-03-31 14:05 | Inpatient (IN) | payer MEDICARE ==
[~2019-03-31] VITALS: Ht 157.5 cm; Wt 70.8 kg
[~2019-03-31 14:05] MED LIST changes: +GABAPENTIN100 MG PO; +GENTAMICIN SULF30 G1 TOPICAL; +MUPIROCIN22 GM TOPICAL; +SENSIPAR90 MG PO; +VANCOCIN HCL250 MG PO
[2019-03-31] MEDS ORDERED: PLAVIX75 MG PO (14:16)
[2019-03-31 14:58] LABS: BASOPHILS 0.4 % (0-2); EOSINOPHILS 3.3 % (0-7); HEMATOCRIT 26.7 % (36.0-48.0); HEMOGLOBIN 8.3 g/dL (12-16); IMMATURE GRANULOCYTES 1.1 % (0-5); LYMPHOCYTES 8.8 % (15-50); MCH 30.2 pg (26.0-34.0); MCHC 31.1 g/dL (31.0-37.0); MCV 97.1 fL (80.0-100.0); MEAN PLATELET VOLUME 9.4 fL (7.4-10.4); MONOCYTES 9.8 % (2-11); NEUTROPHILS 76.6 % (40-80); PLATELET COUNT 458 10x3/uL (130-400); RBC 2.75 10x6/uL (4.00-5.40); RDW 16.3 % (11.5-14.5); WBC 10.3 10x3/uL (4.8-10.8)
[2019-03-31 15:04] LABS: ALBUMIN 2.4 g/dL (3.4-5.0); ANION GAP 19.5 mmol/L (8-16); BILIRUBIN - TOTAL 0.34 mg/dL (0.2-1.3); CALCIUM 9.3 mg/dL (8.5-10.1); CARBON DIOXIDE 26.1 mmol/L (21.0-32.0); CREATININE - SERUM 3.3 mg/dL (0.6-1.3); POTASSIUM - SERUM 3.6 mmol/L (3.5-5.1); PROTEIN - SERUM 7.2 g/dL (6.4-8.2)
--- NOTE | 2019-03-31 21:15 | NUR ---
PATIENT ARRIVED FROM ER VIA STRETCHER ACCOMPAINED BY STAFF AND DAUGHTER. CAROLINA SALTER NOTIFIED. QUICK START, MEDICATION REC AND ADMISSION HISTORY COMPLETED. PATIENT COMPLAINS THAT SHE IS HUNGRY. PATIENT RECEIVED A SANDWICH. PATIENT HAS NO OTHER COMPLAINTS AT THIS TIME. NO DISTRESS NOTED.
[2019-03-31 21:44] VITALS: BP 168/60; BMI 28.6
--- NOTE | 2019-03-31 22:29 | NUR ---
PATIENT SITTING UP IN BED. PATIENT HAS NO COMPLAINTS AT THIS TIME. NO DISTRESS NOTED. UNABLE TO OBTAIN WOUND MEASUREMENTS DUE TO LACK OF MEASURING SUPPLIES.
[2019-04-01 00:30] VITALS: BP 167/80
[2019-04-01 05:30] VITALS: BP 183/96
--- NOTE | 2019-04-01 08:02 | NUR ---
RESUMING PT CARE, PT SITTING UP IN BED ALERT AND ORIENTED X3, CALL LIGHT IN REACH. WILL CONTINUE TO MONITOR AND FOLLOW PLAN OF CARE.
[2019-04-01 08:52] VITALS: BP 183/93
[2019-04-01 12:05] VITALS: Ht 157.5 cm; Wt 70.8 kg
--- NOTE | 2019-04-01 12:24 | NUR ---
I have reviewed this patient and I concur with the Shift Assessment completed by the Licensed Practical Nurse today this shift.
[2019-04-01 12:29] VITALS: BP 173/91
--- NOTE | 2019-04-01 15:46 | NUR ---
Dr. Rushing following. Orders are as follows: Left leg: cleanse with betadine and cover with adaptic, ABD or gauze and secure with kerlix. Right foot: clean with betadine and cover with betadine wet to dry to gangrene areas.
--- NOTE | 2019-04-01 16:24 | MORECARE ---
CASE MANAGEMENT DISCHARGE SUMMARY PATIENT: FRANCES BECKER UNIT: [id number] ADM DATE: 03/31/19 AGE: 68 : 51 SEX: F ROOM/BED: D.2111 AUTHOR: NYLA MASTERSON PHYSICIAN: REFERRING PHYSICIAN: KENDELL BRADY MD DATE OF SERVICE: 04/01/19 Discharge Plan Patient Name: FRANCES BECKER Facility: [facility]:[place] : 1950 Planned Disposition: Home with Home Health Anticipated Discharge Date: 04/01/19 Discharge Date: Expected LOS: 1 Initial Reviewer: [email or web address] Initial Review Date: 04/01/2019 Generated: 04/01/19 5:24 pm DCPIA - Discharge Planning Initial Assessment Updated by [email or web address]: Osvaldo Fiore on 04/01/19 4:22 pm * Is the patient Alert and Oriented? Yes * How many steps to enter\exit or inside your home? 5 W/ RAIL * PCP SID KUMAR NP IN [place] * Pharmacy [facility] IN [place] * Preadmission Environment Home with Family * ADLs Independent * Equipment Cane Grab Bars Rolling Walker Walker * Other Equipment WALKER WITH SEAT AND BRAKES [facility] - MEDICAL EQUIPMENT PROVIDER PREFERENCE * List name and contact numbers for known caregivers / representatives who currently or will assist patient after discharge: PAM BECKER, SPOUSE, LILA DAUGHERTY, DTR, JAMESON VANCE * Verbal permission to speak to the caregivers and representatives has been obtained from the patient. Yes * Community resources currently utilized Home Health * Please name any agencies selected above. [facility], NURSING [facility]ICAL THERAPY * Additional services required to return to the preadmission environment? No * Can the patient safely return to the preadmission environment? Yes * Has this patient been hospitalized within the prior 30 days at any hospital? Yes External [facility]iders [facility] Next Contact Date: 04/01/2019 Service Request Date: Service Type: Resolution: Reviewer: Comments: Patient Name: FRANCES BECKER Page [phone] at 1624 All edits/amendments must be made on the electronic document DICTATION DATE: 04/01/191623 COMPUTER SYSTEM TECHNICIAN: LATISHA 04/01/191623 RPT#: [id number] DC DATE: STATUS: ADM IN [facility] [address] [place] [address] END OF REPORT
--- NOTE | 2019-04-01 16:48 | MORECARE ---
CASE MANAGEMENT DISCHARGE SUMMARY PATIENT: FRANCES BECKER UNIT: [id number] ADM DATE: 03/31/19 AGE: 68 : 51 SEX: F ROOM/BED: D.1527 AUTHOR: NYLA MASTERSON PHYSICIAN: REFERRING PHYSICIAN: KENDELL MILTON MD DATE OF SERVICE: 04/01/19 Discharge Plan Patient Name: FRANCES BECKER Facility: [facility]:[place] : 1950 Planned Disposition: Home with Home Health Anticipated Discharge Date: 04/01/19 Discharge Date: Expected LOS: 1 Initial Reviewer: [email or web address] Initial Review Date: 04/01/2019 Generated: 04/01/19 5:48 pm Comments DCP- Discharge Planning Updated by [id number]: Osvaldo Fiore on 04/01/19 3:[address] Patient Name: FRANCES BECKER Admission Status: ER Accout number: [id number] Admission Date: 03-31-2019 : 1950 Admission Diagnosis:TYPE 2 DIABETES W DIABETIC PERIPHERAL ANGIOPATHY W GANG Attending: Kendell Milton Current LOS: 1 Anticipated DC Date: 04-01-2019 Planned Disposition: Home with Home Health Primary Insurance: MEDICARE A & B PLANNED EXTERNAL PROVIDER: [facility] Discharge Planning Comments: CM MET WITH PT AND DAUGHTER IN ROOM TO DISCUSS DISCHARGE PLANNING AND NEEDS. FRANCES BECKER provided verbal consent to discuss current and ongoing needs with/in the presence of: DAUGHTER, PINKY. PT LIVES AT HOME INDEPENDENTLY WITH HER SPOUSE. PT HAS 2 CANES, GRAB BARS, WALKER, ROLLING WALKER WITH SEAT AND BRAKES FROM [facility]. PT HAS HOME HEALTH WITH [facility]. CM DISCUSSED AVAILABILITY OF HOME HEALTH, REHAB SERVICES AND MEDICAL EQUIPMENT. PT'S DAUGHTER DENIES DISCHARGE NEEDS OTHER THAN HOME HEALTH [place]. CHOICE LETTER SIGNED FOR [facility]. PT'S DAUGHTER, PINKY, DRIVING PT HOME TODAY AT DISCHARGE. CM CALLED [facility], , SPOKE TO JOSSELYN AND PROVIDED REFERRAL INFORMATION, CONFIRMED PT ACTIVE AND PLACED ON SCHEDULE FOR RESUMPTION. CM FAXED REFERRAL AND DISCHARGE INFORMATION TO JOSSELYN AT [facility], . WATER PURIFIER OPERATOR NURSE AND PT NOTIFIED. Warp Splitter: Osvaldo Fiore DCPIA - Discharge Planning Initial Assessment Updated by [id number]: Osvaldo Fiore on 04/01/19 4:22 pm * Is the patient Alert and Oriented? Yes * How many steps to enter\exit or inside your home? 5 W/ RAIL * PCP SID K[facility]AR WATER PUMP ASSEMBLER IN [place] * Pharmacy [facility] IN [place] * Preadmission Environment Home with Family * ADLs Independent * Equipment Cane Grab Bars Rolling Walker Walker * Other Equipment WALKER WITH SEAT AND BRAKES [facility] - MEDICAL EQUIPMENT PROVIDER PREFERENCE * List name and contact numbers for known caregivers / representatives who currently or will assist patient after discharge: PAM BECKER, SPOUSE, LILA DAUGHERTY, DTR, JAMESON VANCE * Verbal permission to speak to the caregivers and representatives has been obtained from the patient. Yes * Community resources currently utilized Home Health * Please name any agencies selected above. [facility], [facility] THER[facility] * Additional services required to return to the preadmission environment? No * Can the patient safely return to the preadmission environment? Yes * Has this patient been hospitalized within the prior 30 days at any hospital? Yes Coverage Notice Reviewer: [id number] - Osvaldo Fiore Notice Issued Date-Time: 04/01/2019 16:00 Notice Type: IM Discharge Notice Notice Delivered To: Patient Relationship to Patient: Casing Running Machine Tender Name: Delivery Method: HAND - Hand Delivered Zara Days: Prior Verbal Notification: Recipient Understood Notice: Yes Recipient Signature: Yes Med Rec Note Co-signed by Attending: Coverage Notice Comment: Last DP export: 04/01/19 3:24 p Patient Name: FRANCES BECKER Page 40481 at 1648 All edits/amendments must be made on the electronic document DICTATION DATE: 04/01/191647 HOSPICE SOCIAL WORKER: LATISHA 04/01/191647 RPT#: [id number] DC DATE: STATUS: ADM IN [facility] [address] [place] [address] END OF REPORT
--- NOTE | 2019-04-01 16:57 | NUR ---
D/C INSTRUCTIONS GIVEN TO PT AND FAMILY, IV REMOVED FROM LEFT FA. PT TAKEN TO PRIVATE CAR VIA WHEELCHAIR.
== END 2019-04-01 16:57 | disposition home health service (06) | DRG 299 ==
LOC: D.ER 14:05 → D.M2 20:32
PROVIDERS: Emergency Medicine; ADMIT Internal Medicine Nephrology; ATTEND Internal Medicine Nephrology
DX: E11.52 Type 2 diabetes mellitus with diabetic peripheral angiopathy with gangrene (principal); N18.6 End stage renal disease; I96 Gangrene, not elsewhere classified; I12.0 Hypertensive chronic kidney disease with stage 5 chronic kidney disease or end stage renal disease; E11.22 Type 2 diabetes mellitus with diabetic chronic kidney disease; Z99.2 Dependence on renal dialysis; E83.59 Other disorders of calcium metabolism; F41.9 Anxiety disorder, unspecified; D63.1 Anemia in chronic kidney disease

== ENCOUNTER 2019-04-16 13:54 | Emergency (ER) | payer MEDICARE ==
[~2019-04-16] VITALS: Ht 157.5 cm; Wt 54.5 kg
[2019-04-16 13:57] VITALS: Ht 157.5 cm; Wt 54.5 kg
[2019-04-16 16:21] LABS: BASOPHILS 0.4 % (0-2); EOSINOPHILS 3.2 % (0-7); HEMATOCRIT 26.7 % (36.0-48.0); HEMOGLOBIN 8.3 g/dL (12-16); IMMATURE GRANULOCYTES 0.5 % (0-5); LYMPHOCYTES 7.4 % (15-50); MCH 29.6 pg (26.0-34.0); MCHC 31.1 g/dL (31.0-37.0); MCV 95.4 fL (80.0-100.0); MEAN PLATELET VOLUME 9.1 fL (7.4-10.4); MONOCYTES 8.5 % (2-11); PLATELET COUNT 474 10x3/uL (130-400); RDW 16.3 % (11.5-14.5); WBC 10.2 10x3/uL (4.8-10.8)
[2019-04-16 16:34] LABS: ALBUMIN 2.9 g/dL (3.4-5.0); ANION GAP 20.5 mmol/L (8-16); BILIRUBIN - TOTAL 0.4 mg/dL (0.2-1.3); CALCIUM 9.2 mg/dL (8.5-10.1); CARBON DIOXIDE 26.2 mmol/L (21.0-32.0); CREATININE - SERUM 3.3 mg/dL (0.6-1.3); MAGNESIUM - SERUM 1.8 mg/dL (1.8-2.4); POTASSIUM - SERUM 3.7 mmol/L (3.5-5.1); PROTEIN - SERUM 6.9 g/dL (6.4-8.2)
[2019-04-16 17:02] LABS: INR 1.02 (0.85-1.17); PROTIME 12.9 SECONDS (11.6-15.0)
[2019-04-16 18:05] VITALS: BP 154/74
== END 2019-04-16 18:06 | disposition home or self-care (01) ==
LOC: D.ER 13:54
PROVIDERS: Emergency Medicine
DX: I73.9 Peripheral vascular disease, unspecified (principal); D64.9 Anemia, unspecified; E11.649 Type 2 diabetes mellitus with hypoglycemia without coma; Z79.4 Long term (current) use of insulin; M79.605 Pain in left leg; N28.9 Disorder of kidney and ureter, unspecified

== ENCOUNTER 2019-04-19 08:17 | Inpatient (IN) | payer MEDICARE ==
[~2019-04-19] VITALS: Ht 157.5 cm; Wt 62.0 kg
[2019-04-19 08:50] LABS: BASOPHILS 0.4 % (0-2); EOSINOPHILS 2.7 % (0-7); HEMATOCRIT 23.1 % (36.0-48.0); IMMATURE GRANULOCYTES 0.4 % (0-5); MCH 29.8 pg (26.0-34.0); MCHC 31.2 g/dL (31.0-37.0); MCV 95.5 fL (80.0-100.0); MEAN PLATELET VOLUME 8.9 fL (7.4-10.4); MONOCYTES 7.9 % (2-11); NEUTROPHILS 80.6 % (40-80); PLATELET COUNT 411 10x3/uL (130-400); RBC 2.42 10x6/uL (4.00-5.40); RDW 16.2 % (11.5-14.5); WBC 10.9 10x3/uL (4.8-10.8)
[2019-04-19 08:52] LABS: HEMOGLOBIN 7.2 g/dL (12-16)
[2019-04-19 09:01] LABS: INR 1.26 (0.85-1.17); PROTIME 15.3 SECONDS (11.6-15.0)
[2019-04-19 09:02] LABS: APTT 46.2 SECONDS (22.8-39.4)
--- NOTE | 2019-04-19 09:18 | NUR ---
STOOL GUIAC + CARD LOT# [id number] 2L 03/22 DEVELOPER LOT# [id number] 04/23
[2019-04-19 09:19] LABS: ALBUMIN 2.6 g/dL (3.4-5.0); ALKALINE PHOSPHATASE 70 U/L (46-116); ALT (SGPT) 21 U/L (10-68); BILIRUBIN - TOTAL 0.44 mg/dL (0.2-1.3); CALC OSMOLALITY 296 mosm/kg (275-300); CALCIUM 7.6 mg/dL (8.5-10.1); CARBON DIOXIDE 20.3 mmol/L (21.0-32.0); CHLORIDE - SERUM 95 mmol/L (98-107); CREATININE - SERUM 9.3 mg/dL (0.6-1.3); GLUCOSE 100 mg/dL (74-106); POTASSIUM - SERUM 5.5 mmol/L (3.5-5.1); PROTEIN - SERUM 6.3 g/dL (6.4-8.2); SODIUM 138 mmol/L (136-145); UREA NITROGEN 70 mg/dL (7-18); eGFR NON AFRICAN AMERICAN 4 mL/min (90-120)
[2019-04-19 09:31] LABS: CKMB 1.8 U/L (0.0-3.6); CREATINE KINASE 358 UL (21-215); MAGNESIUM - SERUM 1.7 mg/dL (1.8-2.4); THYROID STIMULATING HORMONE 4.74 uIU/mL (0.36-3.74)
[2019-04-19 10:50] LABS: % SATURATION 8 % (15-55); IRON 13 ug/dl (35-150); TOTAL IRON BIND CAPACITY 160 ug/dl (260-445); UNSAT IRON BIND CAPACITY 147 ug/dl (150-375)
--- NOTE | 2019-04-19 11:20 | MORECARE ---
CASE MANAGEMENT DISCHARGE SUMMARY PATIENT: FRANCES PUGH UNIT: [id number] ADM DATE: 04/19/19 AGE: 68 : 51 SEX: F ROOM/BED: D.E08 AUTHOR: NYLA MASTERSON PHYSICIAN: REFERRING PHYSICIAN: CATA CASPER MD DATE OF SERVICE: 04/19/19 Discharge Plan Patient Name: FRANCES PUGH [facility] [facility] 1950 Planned Disposition: Inpatient Psych Facility Anticipated Discharge Date: 04/21/19 Discharge Date: Expected LOS: 2 Initial Reviewer: [email or web address] Initial Review Date: 04/19/2019 Generated: 04/19/19 12:20 pm DCPIA - Discharge Planning Initial Assessment Updated by [email or web address]: Precious Weiss on 04/19/19 11:18 am * Is the patient Alert and Oriented? Yes * How many steps to enter\exit or inside your home? * PCP Dr. Dori Tan * Pharmacy [facility] * Preadmission Environment Home with Family * ADLs Partial Dependent * Partial ADLs (Assistance needed) Ambulation Dressing Toileting Transfers * Equipment Bedside Commode Cane Glucometer Rolling Walker Wheelchair * Other Equipment Denied having any problems getting her diabetes testing supplies. * List name and contact numbers for known caregivers / representatives who currently or will assist patient after discharge: Shawn Pugh - [facility] - [phone] * Verbal permission to speak to the caregivers and representatives has been obtained from the patient. Yes * Community resources currently utilized Home Health * Please name any agencies selected above. [facility] * Additional services required to return to the preadmission environment? Yes * Can the patient safely return to the preadmission environment? Yes * Has this patient been hospitalized within the prior 30 days at any hospital? Yes Patient Name: FRANCES PUGH Page 35290 at 1120 All edits/amendments must be made on the electronic document DICTATION DATE: 04/19/19 1120 WORKERS COMPENSATION ANALYST: LATISHA 04/19/19 1120 RPT#: [id number] DC DATE: STATUS: ADM IN [facility] [address] [place] [address] END OF REPORT
--- NOTE | 2019-04-19 11:28 | MORECARE ---
CASE MANAGEMENT DISCHARGE SUMMARY PATIENT: FRANCES PUGH UNIT: [id number] ADM DATE: 04/19/19 AGE: 68 : 51 SEX: F ROOM/BED: D.E08 AUTHOR: NYLA MASTERSON PHYSICIAN: REFERRING PHYSICIAN: CATA CASPER MD DATE OF SERVICE: 04/19/19 Discharge Plan Patient Name: FRANCES PUGH Facility: [facility]:[place] : 1950 Planned Disposition: Inpatient Psych Facility Anticipated Discharge Date: 04/21/19 Discharge Date: Expected LOS: 2 Initial Reviewer: [email or web address] Initial Review Date: 04/19/2019 Generated: 04/19/19 12:28 pm DCP- Discharge Planning Updated by [id number]: Precious Weiss on 04/19/19 10:[address] Patient Name: FRANCES PUGH Admission Status: ER Accout number: [id number] Admission Date: 04-19-2019 : 1950 Admission Diagnosis: Attending: CATA CASPER Current LOS: 1 Anticipated DC Date: 04-21-2019 Planned Disposition: Inpatient Psych Facility Primary Insurance: MEDICARE A & B Discharge Planning Comments: CM met with patient, her , and her daughter to complete initial dc planning assessment. CM educated patient on the CM role and verbal consent given by patient to complete assessment. CM verified patient's address, phone number, and emergency contact phone numbers. Patient lives at home with her and requires assistance with most all of her ADL's. For the past few months patient's reports she has become weaker. She has had [facility] therapy and nursing that have been coming to her home. He reports she is unable to ambulate the past few days. There is a bandage to her left leg. Patient is a dialysis patient at [facility] on . Her transports her to and from dialysis. Patient also has diabetic neuropathy and her daughter reports this caused her a great deal of pain. At discharge patient feels she needs rehab of some sort prior to going home. Rehab options discussed, and choices given. Patient would like her first choice be Inpatient Rehab, then her second choice is [facility]. K[facility] form presented, explained, and signed by patient's daughter ad patient's request for 1. [place] Rehab at , 2. [facility], 3. [facility]. Once MD feels patient is medically stable a rehab consult will need to be placed along with PT/OT. CM will continue to follow and will assist as needed with dc plans/needs. Chair Mechanic: Precious Weiss RN, [facility] DCPIA - Discharge Planning Initial Assessment Updated by [id number]: Precious Weiss on 04/19/19 11:18 am * Is the patient Alert and Oriented? Yes * How many steps to enter\exit or inside your home? * PCP Dr. Dori Heaton - [place] * Pharmacy [facility] * Preadmission Environment Home with Family * ADLs Partial Dependent * Partial ADLs (Assistance needed) Ambulation Dressing Toileting Transfers * Equipment Bedside Commode Cane Glucometer Rolling Walker Wheelchair * Other Equipment Denied having any problems getting her diabetes testing supplies. * List name and contact numbers for known caregivers / representatives who currently or will assist patient after discharge: Shawn Pugh - spouse - [phone] * Verbal permission to speak to the caregivers and representatives has been obtained from the patient. Yes * Community resources currently utilized Home Health * Please name any agencies selected above. [facility] * Additional services required to return to the preadmission environment? Yes * Can the patient safely return to the preadmission environment? Yes * Has this patient been hospitalized within the prior 30 days at any hospital? Yes Last DP export: 04/19/19 10:20 a Patient Name: FRANCES PUGH Page 21195 at 1128 All edits/amendments must be made on the electronic document DICTATION DATE: 04/19/191127 SODA COLUMN OPERATOR: LATISHA 04/19/19 112 RPT#: [id number] DC DATE: STATUS: ADM IN [facility] [address] [place] [address] END OF REPORT
[2019-04-19 11:47] VITALS: BP 152/74
[2019-04-19 12:47] VITALS: BP 162/72
--- NOTE | 2019-04-19 12:47 | NUR ---
PRBC STARTED AT 1150
--- NOTE | 2019-04-19 12:54 | NUR ---
FSBS 70...25ML D50 GIVEN PER PROTOCOL
--- NOTE | 2019-04-19 13:33 | NUR ---
FSBS 110....
--- NOTE | 2019-04-19 14:24 | NUR ---
DR CASPER AT [facility]...ORDER FOR D5NS WHILE NPO FOR CONTINUED HYPOGLYCEMIA RECIEVED.
--- NOTE | 2019-04-19 15:24 | NUR ---
FSBS 61.....25ML D50 GIVEN PER PROTOCOL
--- NOTE | 2019-04-19 16:00 | NUR ---
FSBS 82....D5NS STARTED AT 50ML/HR
[2019-04-19 16:11] VITALS: BP 160/80
--- NOTE | 2019-04-19 17:02 | NUR ---
PT TO GI LAB, REPORT GIVEN TO GI RN AND REPORT CALLED TO BRITTANY ON M2
[2019-04-19 18:30] VITALS: BP 175/92; BMI 22.9
--- NOTE | 2019-04-19 19:20 | NUR ---
PT RESTING IN BED. FAMILY AT BEDSIDE. PT IS ON ROOM AIR. PROTONIX AND D5NS INFUSING ORDERED, PT HAS NO S/S OF DISTRESS. FAMILY IN ROOM CHANGED LOWER EXTREM DRSG, DRSG NOW CDI. NURSE HUNG A RESERVE RIGHT ARM SIGN FOR AVF ON RIGHT ARM. BRUIT AND THRILL NOTED. NURSE PLACED TELEMETRY ON PT. PT HAS NO NEEDS. NAME AND DATE PLACED ON BOARD. WILL CPOC
[2019-04-19 20:00] VITALS: BP 159/84
--- NOTE | 2019-04-19 21:24 | NUR ---
SPOKE WITH RONDA REGARDING RESTARTING HOME MEDICATIONS. RONDA SAID RESTART MEDICATIONS PUT HOLD ON LANTUS AND PLAVIX AT THIS TIME. NURSE READ BACK ORDER TO VERIFY. PLACED ORDERS,
--- NOTE | 2019-04-19 22:34 | NUR ---
NIGHT MEDICATIONS GIVEN. PT VERBALIZED UNDERSTANDING IN MEDICATIONS. PT GIVEN ATIVAN REQUESTED. PT HAS NO S/S OF DISTRESS. BEDLOW AND CALL LIGHT IN REACH. FAMILY AT BEDSIDE. WILL CPOC
--- NOTE | 2019-04-20 03:15 | NUR ---
PT CALLED, FAMILY IN ROOM. PT NEEDING TO USE RESTROOM. PT ASSISTED TO RESTROOM WITH ASSIST FROM NURSE AND FAMILY MEMBER. PT NEEDING VERBAL COMMANDS AND CONSTANT ASSIST. PT BACK TO BED. SITTING ON SIDE OF BED AT THIS TIME. PT HAS NO S/S OF DISTRESS. WILL CPOC
[2019-04-20 04:00] VITALS: BP 118/60
[2019-04-20 05:10] LABS: BASOPHILS 0.3 % (0-2); EOSINOPHILS 2.8 % (0-7); HEMATOCRIT 25.1 % (36.0-48.0); HEMOGLOBIN 8.1 g/dL (12-16); IMMATURE GRANULOCYTES 0.4 % (0-5); LYMPHOCYTES 6.9 % (15-50); MCH 29.5 pg (26.0-34.0); MCHC 32.3 g/dL (31.0-37.0); MEAN PLATELET VOLUME 9.2 fL (7.4-10.4); MONOCYTES 9.3 % (2-11); NEUTROPHILS 80.3 % (40-80); PLATELET COUNT 429 10x3/uL (130-400); RBC 2.75 10x6/uL (4.00-5.40); RDW 17.1 % (11.5-14.5); WBC 10.6 10x3/uL (4.8-10.8)
[2019-04-20 05:50] LABS: ALBUMIN 2.4 g/dL (3.4-5.0); ANION GAP 31.8 mmol/L (8-16); BILIRUBIN - TOTAL 0.44 mg/dL (0.2-1.3); CARBON DIOXIDE 15.9 mmol/L (21.0-32.0); CREATININE - SERUM 10.1 mg/dL (0.6-1.3); POTASSIUM - SERUM 5.7 mmol/L (3.5-5.1); PROTEIN - SERUM 5.9 g/dL (6.4-8.2)
[2019-04-20 05:58] LABS: MCV 91.3 fL (80.0-100.0)
--- NOTE | 2019-04-20 06:45 | NUR ---
MORNING MEDICATIONS GIVEN. PT FSBS IS 61 INSTA GLUCOSE GIVEN AND OFFERED MILK. D5NS INFUSING AT 20 PT HAS NOT EATEN SINCE YESTURDAY. SITTING ON SIDE OF BED. NO S/S OF DISTRESS. WILLC POC
[2019-04-20 08:39] VITALS: BP 163/87
[2019-04-20 11:40] VITALS: BP 161/73
--- NOTE | 2019-04-20 14:00 | NUR ---
ALERT AND ORIENTED X4. ASSIST OOB TO RESTROOM. IV TWISTED AROUND BEDRAILING. IV OUT TIP INTACT. LINEN AND GOWN CHANGED. FAMILY AT BEDSIDE. TRANSPORT TO DIALYSIS VIA BED. CONTINUE PLAN OF CARE AND SAFETY PRECAUTIONS.
[2019-04-20 14:17] VITALS: Ht 157.5 cm; Wt 62.0 kg
--- NOTE | 2019-04-20 19:30 | NUR ---
PT ALERT WITH TIMES OF CONFUSION. DAUGHTER AT BEDSIDE. PT HAS BLSITERS TO LEFT FOOT. DOCTORS NOTE AND IS AWARE. HAS DRESSING TO CALCIFICATIONS ON BILATERAL LOWER EXTREMETIES. RESITED PATIENT IV TO THE LEFT HAND. RIGHT ARM RESERVE DUE TO FISTULA. UPON ASSESSMENT PATIENT HAS SMALL, OPEN AREA TO COCCYX 0.5 X 0.5 WITH NO DISCHARGE NOTED. APPLIED SMALL MEPILEX PADDED BANDAIGE. DENIES FURTHER NEEDS AT THIS TIME. ROOM AIR. BED ALARM ON.
[2019-04-20 20:00] VITALS: BP 137/78
[2019-04-21 04:00] VITALS: BP 130/70
--- NOTE | 2019-04-21 04:04 | NUR ---
I have reviewed this patient and I concur with the Shift Assessment completed by the Licensed Practical Nurse today this shift.
[2019-04-21 07:15] LABS: CALCIUM 7.5 mg/dL (8.5-10.1); PHOSPHOROUS 5.6 mg/dL (2.5-4.9)
[2019-04-21 07:17] LABS: CARBON DIOXIDE 23.8 mmol/L (21.0-32.0); CREATININE - SERUM 6.8 mg/dL (0.6-1.3); POTASSIUM - SERUM 4.8 mmol/L (3.5-5.1)
[2019-04-21 07:46] LABS: BASOPHILS 0.2 % (0-2); EOSINOPHILS 2.5 % (0-7); HEMATOCRIT 25.6 % (36.0-48.0); HEMOGLOBIN 8.4 g/dL (12-16); IMMATURE GRANULOCYTES 0.3 % (0-5); LYMPHOCYTES 7.5 % (15-50); MCH 29.4 pg (26.0-34.0); MCHC 32.8 g/dL (31.0-37.0); MCV 89.5 fL (80.0-100.0); MEAN PLATELET VOLUME 9.4 fL (7.4-10.4); MONOCYTES 10.4 % (2-11); NEUTROPHILS 79.1 % (40-80); PLATELET COUNT 437 10x3/uL (130-400); RBC 2.86 10x6/uL (4.00-5.40); RDW 16.8 % (11.5-14.5); WBC 10.1 10x3/uL (4.8-10.8)
[2019-04-21 08:10] VITALS: BP 148/81
[2019-04-21 11:37] VITALS: BP 136/75
[2019-04-21 14:38] VITALS: BP 129/72
--- NOTE | 2019-04-21 16:45 | MORECARE ---
CASE MANAGEMENT DISCHARGE SUMMARY PATIENT: FRANCES PUGH UNIT: [id number] ADM DATE: 04/19/19 AGE: 68 : 51 SEX: F ROOM/BED: D.8595 AUTHOR: NYLA MASTERSON PHYSICIAN: REFERRING PHYSICIAN: CATA CASPER MD DATE OF SERVICE: 04/21/19 Discharge Plan Patient Name: FRANCES PUGH [facility] [facility] 1950 Planned Disposition: Inpatient Rehab Anticipated Discharge Date: 04/22/19 Discharge Date: Expected LOS: 3 Initial Reviewer: [email or web address] Initial Review Date: 04/19/2019 Generated: 04/21/19 5:44 pm Comments DCP- Discharge Planning Updated by [id number]: Osvaldo Fiore on 04/21/19 3:[address] Patient Name: FRANCES PUGH Encounter No: [id number] : 1950 Primary Insurance: MEDICARE A & B Anticipated DC Date: 04-22-2019 Planned Disposition: Inpatient Rehab External Planned Provider: [facility] DCP follow-up note: CM RECEIVED INPATIENT REHAB PRESCREENING ORDER, CM MET WITH PT AND SPOUSE IN ROOM TO DISCUSS DISCHARGE PLANNING AND NEEDS. FRANCES PUGH provided verbal consent to discuss current and ongoing needs with/in the presence of: SPOUSE, SHAWN. CM DISCUSSED AVAILABILITY OF HOME HEALTH, REHAB SERVICES AND MEDICAL EQUIPMENT. PT AND SPOUSE REPORT THEY PREFER [facility], CM WAITING INPATIENT REHAB PRESCREENING AND ADMISSION DETERMINATION FROM [facility]. MONROE Corbin DCP- Discharge Planning Updated by [email or web address]: Precious Weiss on 04/19/19 10:[address] Patient Name: FRANCES PUGH Admission Status: ER Accout number: [id number] Admission Date: 04-19-2019 : 1950 Admission Diagnosis: Attending: CATA CASPER Current LOS: 1 Anticipated DC Date: 04-21-2019 Planned Disposition: Inpatient Psych Facility Primary Insurance: MEDICARE A & B Discharge Planning Comments: CM met with patient, her , and her daughter to complete initial dc planning assessment. CM educated patient on the CM role and verbal consent given by patient to complete assessment. CM verified patient's address, phone number, and emergency contact phone numbers. Patient lives at home with her and requires assistance with most all of her ADL's. For the past few months patient's reports she has become weaker. She has had [facility] therapy and nursing that have been coming to her home. He reports she is unable to ambulate the past few days. There is a bandage to her left leg. Patient is a dialysis patient at [facility] on . Her transports her to and from dialysis. Patient also has diabetic neuropathy and her daughter reports this caused her a great deal of pain. At discharge patient feels she needs rehab of some sort prior to going home. Rehab options discussed, and choices given. Patient would like her first choice be Inpatient Rehab, then her second choice is [facility]. KINDRA form presented, explained, and signed by patient's daughter ad patient's request for 1. [place] Rehab at , 2. [facility], 3. [facility]. Once MD feels patient is medically stable a rehab consult will need to be placed along with PT/OT. CM will continue to follow and will assist as needed with dc plans/needs. Pipelines Supervisor: Precious Weiss RN, [facility] DCPIA - Discharge Planning Initial Assessment Updated by [email or web address]: Precious Weiss on 04/19/19 11:18 am * Is the patient Alert and Oriented? Yes * How many steps to enter\exit or inside your home? * PCP Dr. Dori Heaton - [place] * Pharmacy [facility] * Preadmission Environment Home with Family * ADLs Partial Dependent * Partial ADLs (Assistance needed) Ambulation Dressing Toileting Transfers * Equipment Bedside Commode Cane Glucometer Rolling Walker Wheelchair * Other Equipment Denied having any problems getting her diabetes testing supplies. * List name and contact numbers for known caregivers / representatives who currently or will assist patient after discharge: Shawn Pugh - spouse - [phone] * Verbal permission to speak to the caregivers and representatives has been obtained from the patient. Yes * Community resources currently utilized Home Health * Please name [facility] selected [facility] * Additional services required to return to the preadmission environment? Yes * Can the patient safely return to the preadmission environment? Yes * Has this patient been hospitalized within the prior 30 days at any hospital? Yes Last DP export: 04/19/19 10:28 a Patient Name: FRANCES PUGH Page 21503 at 1645 All edits/amendments must be made on the electronic document DICTATION DATE: 04/21/191643 MANAGER R D: LATISHA 04/21/191643 RPT#: [id number] DC DATE: STATUS: ADM IN [facility] [address] [place] [address] END OF REPORT
--- NOTE | 2019-04-21 19:00 | NUR ---
PATIENT CURRENTLY IN DIAYLSIS.
--- NOTE | 2019-04-21 20:15 | NUR ---
PATIENT BACK FROM DIAYLSIS VIA BED ACCOMPANIED BY HOSPITAL STAFF.
[2019-04-22] VITALS: BP 169/89
--- NOTE | 2019-04-22 03:25 | NUR ---
PATIENT LAYING IN BED. EYES CLOSED, CHEST RISING AND FALLING. DAUGHTER AT BEDSIDE.
[2019-04-22 04:00] VITALS: BP 163/77
[2019-04-22 06:34] LABS: BASOPHILS 0.4 % (0-2); EOSINOPHILS 1.9 % (0-7); HEMATOCRIT 24.3 % (36.0-48.0); HEMOGLOBIN 7.8 g/dL (12-16); IMMATURE GRANULOCYTES 0.1 % (0-5); LYMPHOCYTES 7.8 % (15-50); MCHC 32.1 g/dL (31.0-37.0); MCV 90.3 fL (80.0-100.0); MEAN PLATELET VOLUME 9.4 fL (7.4-10.4); MONOCYTES 12.6 % (2-11); NEUTROPHILS 77.2 % (40-80); PLATELET COUNT 404 10x3/uL (130-400); RBC 2.69 10x6/uL (4.00-5.40); RDW 16.7 % (11.5-14.5); WBC 10.4 10x3/uL (4.8-10.8)
[2019-04-22 06:55] LABS: ANION GAP 16.2 mmol/L (8-16); CALCIUM 8.5 mg/dL (8.5-10.1); CARBON DIOXIDE 27.7 mmol/L (21.0-32.0); PHOSPHOROUS 4.8 mg/dL (2.5-4.9)
[2019-04-22 06:59] LABS: CREATININE - SERUM 4.7 mg/dL (0.6-1.3); POTASSIUM - SERUM 3.9 mmol/L (3.5-5.1)
--- NOTE | 2019-04-22 07:24 | NUR ---
RECEIVED VERBAL ORDERS FROM TO DC PROTONIX DRIP AND START ON 40MG PROTONIX BID. PLACED ORDER. WILL CTM.
--- NOTE | 2019-04-22 07:29 | NUR ---
REPORT RECEIVED. WILL CONTINUE WITH POC. PT CURRENTLY LYING SEMI FOWLERS. CALL LIGHT W/I REACH. PT IS AAO AND UP WITH ASSIST. RR EVEN AND UNLABORED ON RA. FAMILY AT BEDSIDE. PROTONIX INFUSING @10ML/HR VIA L.HAND PIV. PT DENIES ANY NEEDS AT THIS TIME. IN ROOM DISCUSSING CARE WITH PT UPON ENTERING THE ROOM. WILL CTM.
[2019-04-22 08:18] VITALS: BP 144/85
--- NOTE | 2019-04-22 09:24 | NUR ---
AM MEDICATIONS ADMINISTERED. ENEMA ADMINISTERED. REDRESSED PIV TO THE LEFT HAND. PIV IS PATENT AND FLUSHES/PULLES. ABX INFUSING. PT DENIES ANY NEEDS. FAMILY AT BEDSIDE. WILL CTM.
--- NOTE | 2019-04-22 11:13 | NUR ---
I have reviewed this patient and I concur with the Shift Assessment completed by the Licensed Practical Nurse today this shift.
[2019-04-22] MEDS ORDERED: LYRICA25 MG PO (11:44)
[2019-04-22] MEDS ORDERED: PROCRIT/EP20000 UNIT IV (11:44)
[2019-04-22] MEDS ORDERED: ULTRAM50 MG PO (11:45)
[2019-04-22] MEDS ORDERED: PROTONIX40 MG PO (11:45)
[2019-04-22] MEDS ORDERED: ANUSOL-HC25 MG RC (11:45)
[2019-04-22] MEDS ORDERED: ANUSOL-HC 2.5%30 GM TOPICAL (11:45)
[2019-04-22] MEDS ORDERED: SODIUM THIOSULFATE IV (11:46)
[2019-04-22 11:51] VITALS: BP 132/82
--- NOTE | 2019-04-22 12:59 | MORECARE ---
CASE MANAGEMENT DISCHARGE SUMMARY PATIENT: FRANCES PUGH UNIT: [id number] ADM DATE: 04/19/19 AGE: 68 : 51 SEX: F ROOM/BED: D.5695 AUTHOR: NYLA MASTERSON PHYSICIAN: REFERRING PHYSICIAN: CATA CASPER MD DATE OF SERVICE: 04/22/19 Discharge Plan Patient Name: FRANCES PUGH [facility] [facility] 1950 Planned Disposition: Inpatient Rehab Anticipated Discharge Date: 04/22/19 Discharge Date: Expected LOS: 3 Initial Reviewer: [email or web address] Initial Review Date: 04/19/2019 Generated: 04/22/19 1:59 pm Comments DCP- Discharge Planning Updated by [email or web address]: Osvaldo Fiore on 04/21/19 3:[address] Patient Name: FRANCES PUGH Encounter No: [id number] : 1950 Primary Insurance: MEDICARE A & B Anticipated DC Date: 04-22-2019 Planned Disposition: Inpatient Rehab External Planned Provider: [facility] DCP follow-up note: CM RECEIVED INPATIENT REHAB PRESCREENING ORDER, CM MET WITH PT AND SPOUSE IN ROOM TO DISCUSS DISCHARGE PLANNING AND NEEDS. FRANCES PUGH provided verbal consent to discuss current and ongoing needs with/in the presence of: SPOUSE, SHAWN. CM DISCUSSED AVAILABILITY OF HOME HEALTH, REHAB SERVICES AND MEDICAL EQUIPMENT. PT AND SPOUSE REPORT THEY PREFER [facility], CM WAITING INPATIENT REHAB PRESCREENING AND ADMISSION DETERMINATION FROM [facility] INPATIENT RE[facility]. MONROE Corbin DCP- Discharge Planning Updated by [id number]: Precious Weiss on 04/19/19 10:[address] Patient Name: FRANCES PUGH Admission Status: ER Accout number: [id number] Admission Date: 04-19-2019 : 1950 Admission Diagnosis: Attending: CATA CASPER Current LOS: 1 Anticipated DC Date: 04-21-2019 Planned Disposition: Inpatient Psych Facility Primary Insurance: MEDICARE A & B Discharge Planning Comments: CM met with patient, her , and her daughter to complete initial dc planning assessment. CM educated patient on the CM role and verbal consent given by patient to complete assessment. CM verified patient's address, phone number, and emergency contact phone numbers. Patient lives at home with her and requires assistance with most all of her ADL's. For the past few months patient's reports she has become weaker. She has had [facility] [place] therapy and nursing that have been coming to her home. He reports she is unable to ambulate the past few days. There is a bandage to her left leg. Patient is a dialysis patient at [facility] on . Her transports her to and from dialysis. Patient also has diabetic neuropathy and her daughter reports this caused her a great deal of pain. At discharge patient feels she needs rehab of some sort prior to going home. Rehab options discussed, and choices given. Patient would like her first choice be Inpatient Rehab, then her second choice is [facility]. KINDRA form presented, explained, and signed by patient's daughter ad patient's request for 1. [place] Rehab at , 2. [facility], 3. [facility]. Once MD feels patient is medically stable a rehab consult will need to be placed along with PT/OT. CM will continue to follow and will assist as needed with dc plans/needs. Security Researcher: Precious Weiss RN, [facility] DCPIA - Discharge Planning Initial Assessment Updated by [email or web address]: Precious Weiss on 04/19/19 11:18 am * Is the patient Alert and Oriented? Yes * How many steps to enter\exit or inside your home? * PCP Dr. Dori Heaton - [place] * Pharmacy [facility] * Preadmission Environment Home with Family * ADLs Partial Dependent * Partial ADLs (Assistance needed) Ambulation Dressing Toileting Transfers * Equipment Bedside Commode Cane Glucometer Rolling Walker Wheelchair * Other Equipment Denied having any problems getting her diabetes testing supplies. * List name and contact numbers for known caregivers / representatives who currently or will assist patient after discharge: Shawn Pugh - spouse - [phone] * Verbal permission to speak to the caregivers and representatives has been obtained from the patient. Yes * Community resources currently utilized Home Health * Please [facility] * Additional services required to return to the preadmission environment? Yes * Can the patient safely return to the preadmission environment? Yes * Has this patient been hospitalized within the prior 30 days at any hospital? Yes Coverage Notice Reviewer: [id number] Roro Fiore Notice Issued Date-Time: 04/22/2019 11:15 Notice Type: IM Discharge Notice Notice Delivered To: Patient Relationship to Patient: Cook Supervisor Name: Delivery Method: HAND - Hand Delivered Zara Days: Prior Verbal Notification: Recipient Understood Notice: Yes Recipient Signature: Yes Med Rec Note Co-signed by Attending: Coverage Notice Comment: Last DP export: 04/21/19 3:44 p Patient Name: FRANCES PUGH Page 01125 at 1259 All edits/amendments must be made on the electronic document DICTATION DATE: 04/22/191258 CONTACT CENTER ASSOCIATE: LATISHA 04/22/19 125 RPT#: [id number] DC DATE: STATUS: ADM IN [facility] [address] [place] [address] END OF REPORT
--- NOTE | 2019-04-22 13:07 | MORECARE ---
CASE MANAGEMENT DISCHARGE SUMMARY PATIENT: FRANCES PUGH UNIT: [id number] ADM DATE: 04/19/19 AGE: 68 : 51 SEX: F ROOM/BED: D.6305 AUTHOR: NYLA MASTERSON PHYSICIAN: REFERRING PHYSICIAN: CATA CASPER MD DATE OF SERVICE: 04/22/19 Discharge Plan Patient Name: FRANCES PUGH Facility: [facility]:[place] : 1950 Planned Disposition: Inpatient Rehab Anticipated Discharge Date: 04/22/19 Discharge Date: Expected LOS: 3 Initial Reviewer: [email or web address] Initial Review Date: 04/19/2019 Generated: 04/22/19 2:06 pm Comments DCP- Discharge Planning Updated by [email or web address]: Osvaldo Fiore on 04/22/19 12:[address] Patient Name: FRANCES PUGH Encounter No: [id number] : 1950 Primary Insurance: MEDICARE A & B Anticipated DC Date: 04-22-2019 Planned Disposition: Inpatient Rehab External Planned Provider: [facility] DCP follow-up note: CM SPOKE TO [facility]AG OF INPATIENT REHAB, THEY PLAN TO ACCEPT PT TODAY FOR REHAB. PT NOTIFIED, IN AGREEMENT WITH DISCHARGE TO INPATIENT REHAB. IMPORTANT MESSAGE FROM MEDICARE. RN CM HOUSE NOTIFIED BRANDON INGRAM, DISCHARGE ORDER RECEIVED. [facility] TO CONTACT MED 2 NURSE WITH ROOM NUMBER WHEN READY TO ACCEPT PT AND NURSE REPORT. Osvaldo Fiore, FOREST MANAGER DCP- Discharge Planning Updated by [email or web address]: Osvaldo Fiore on 04/21/19 3:[address] Patient Name: FRANCES PUGH Encounter No: [id number] : 1950 Primary Insurance: MEDICARE A & B Anticipated DC Date: 04-22-2019 Planned Disposition: Inpatient Rehab External Planned Provider: [facility] DCP follow-up note: CM RECEIVED INPATIENT REHAB PRESCREENING ORDER, CM MET WITH PT AND SPOUSE IN ROOM TO DISCUSS DISCHARGE PLANNING AND NEEDS. FRANCES PUGH provided verbal consent to discuss current and ongoing needs with/in the presence of: SPOUSE, SHAWN. CM DISCUSSED AVAILABILITY OF HOME HEALTH, REHAB SERVICES AND MEDICAL EQUIPMENT. PT AND SPOUSE REPORT THEY PREFER [facility], CM WAITING INPATIENT REHAB PRESCREENING AND ADMISSION DETERMINATION FROM [facility]. Osvaldo Fiore, CASE MANAGEMENT DCP- Discharge Planning Updated by [email or web address]: Precious Weiss on 04/19/19 10:[address] Patient Name: FRANCES PUGH Admission Status: ER Accout number: [id number] Admission Date: 04-19-2019 : 1950 Admission Diagnosis: Attending: CATA CASPER Current LOS: 1 Anticipated DC Date: 04-21-2019 Planned Disposition: Inpatient Psych Facility Primary Insurance: MEDICARE A & B Discharge Planning Comments: CM met with patient, her , and her daughter to complete initial dc planning assessment. CM educated patient on the CM role and verbal consent given by patient to complete assessment. CM verified patient's address, phone number, and emergency contact phone numbers. Patient lives at home with her and requires assistance with most all of her ADL's. For the past few months patient's reports she has become weaker. She has had [facility] therapy and nursing that have been coming to her home. He reports she is unable to ambulate the past few days. There is a bandage to her left leg. Patient is a dialysis patient at [facility] on . Her transports her to and from dialysis. Patient also has diabetic neuropathy and her daughter reports this caused her a great deal of pain. At discharge patient feels she needs rehab of some sort prior to going home. Rehab options discussed, and choices given. Patient would like her first choice be Inpatient Rehab, then her second choice is [facility] Rehab. KINDRA form presented, explained, and signed by patient's daughter ad patient's request for 1. IN Rehab at , 2. [facility], 3. [facility]. Once MD feels patient is medically stable a rehab consult will need to be placed along with PT/OT. CM will continue to follow and will assist as needed with dc plans/needs. Cap Maker: Precious Weiss RN, [facility] DCPIA - Discharge Planning Initial Assessment Updated by [email or web address]: Preciosu Weiss on 04/19/19 11:18 am * Is the patient Alert and Oriented? Yes * How many steps to enter\exit or inside your home? * PCP Dr. Dori Heaton - [place] * Pharmacy [facility] * Preadmission Environment Home with Family * ADLs Partial Dependent * Partial ADLs (Assistance needed) Ambulation Dressing Toileting Transfers * Equipment Bedside Commode Cane Glucometer Rolling Walker Wheelchair * Other Equipment Denied having any problems getting her diabetes testing supplies. * List name and contact numbers for known caregivers / representatives who currently or will assist patient after discharge: Shawn Pugh - spouse - [phone] * Verbal permission to speak to the caregivers and representatives has been obtained from the patient. Yes * Community resources currently utilized Home Health * Please name any agencies selected above. [facility]- [place] * Additional services required to return to the preadmission environment? Yes * Can the patient safely return to the preadmission environment? Yes * Has this patient been hospitalized within the prior 30 days at any hospital? Yes Coverage Notice Reviewer: [id number] Roro Fiore Notice Issued Date-Time: 04/22/2019 11:15 Notice Type: IM Discharge Notice Notice Delivered To: Patient Relationship to Patient: [place] Seamer Name: Delivery Method: HAND - Hand Delivered Zara Days: Prior Verbal Notification: Recipient Understood Notice: Yes Recipient Signature: Yes Med Rec Note Co-signed by Attending: Coverage Notice Comment: Last DP export: 04/22/19 11:59 a Patient Name: FRANCES PUGH Page 08307 at 1307 All edits/amendments must be made on the electronic document DICTATION DATE: 04/22/19 1306 WAGE AND SALARY SPECIALIST: LATISHA 04/22/19 1306 RPT#: [id number] DC DATE: STATUS: ADM IN [facility] [address] [place] [address] END OF REPORT
--- NOTE | 2019-04-22 15:48 | NUR ---
PT TRANSFERED TO INPATIENT REHAB. TELEMETRY REMOVED AND RETURNED. PIV REMOVED WITH CATHETER TIP FULLY INTACT. PT SIGNED PROPER DISCHARGE INSTRUCTION AND REMOVED ALL VALUALBES FROM THE ROOM.
== END 2019-04-22 15:49 | DRG 377 ==
LOC: D.ER 08:17 → D.M2 09:42 → D.EDHOLD 09:42 → D.M2 14:53
PROVIDERS: Family Medicine; Internal Medicine Gastroenterology; Internal Medicine Nephrology; ADMIT Internal Medicine Nephrology; ATTEND Internal Medicine Nephrology
PROC: 0DJ08ZZ Inspection of Upper Intestinal Tract, Via Natural or Artificial Opening Endoscopic (ICD-10-PCS; principal; 2019-04-19 15:41)
DX: K29.71 Gastritis, unspecified, with bleeding (principal); N18.6 End stage renal disease; I12.0 Hypertensive chronic kidney disease with stage 5 chronic kidney disease or end stage renal disease; L97.222 Non-pressure chronic ulcer of left calf with fat layer exposed; K92.2 Gastrointestinal hemorrhage, unspecified; D63.1 Anemia in chronic kidney disease; E11.22 Type 2 diabetes mellitus with diabetic chronic kidney disease; Z99.2 Dependence on renal dialysis; E11.51 Type 2 diabetes mellitus with diabetic peripheral angiopathy without gangrene; E78.5 Hyperlipidemia, unspecified; K21.0 Gastro-esophageal reflux disease with esophagitis; K29.70 Gastritis, unspecified, without bleeding; E11.622 Type 2 diabetes mellitus with other skin ulcer; E83.59 Other disorders of calcium metabolism; K64.9 Unspecified hemorrhoids

== ENCOUNTER 2019-04-22 16:04 | Inpatient (IN) | payer MEDICARE ==
[~2019-04-22] VITALS: Ht 157.5 cm; Wt 59.1 kg
[~2019-04-22 16:04] MED LIST changes: +ANUSOL-HC 2.5%30 GM TOPICAL; +ANUSOL-HC25 MG RC; +LYRICA25 MG PO; +PROCRIT/EP20000 UNIT IV; +PROTONIX40 MG PO; +SODIUM THIOSULFATE IV; +ULTRAM50 MG PO
[2019-04-22 17:01] VITALS: BP 132/76; BMI 27.5
--- NOTE | 2019-04-22 17:15 | NUR ---
SKIN ASSESSMENT: RLE: 1X1 CM INSIDE MIDDLE OF FOOT 2X3 CM TOP OF FOOT CLOSE TO TOES 4X3 CM TOP OF FOOT BY LAST TWO TOES 4TH AND 5TH TOES ARE BLACK 4X5 CM TOP OF FOOT 1X1.5 CM LATERAL HEEL 7X5 CM INSIDE RLE BY KNEE THESE AREAS ARE DRY AND HAVE DARKENED WOUND BEDS. APPX DEPTH OF 0.25 CM LLE: 25 CM TALL AND GOES AROUND LEG...THIS AREA IS PATCHY AND UNEVEN WITH DARKENED WOUND BED. AREA ON TOP OF FOOT IS APPX 0.25 CM DEEP WITH WILL DEFINDED BORDERS OF BLACK TISSUE, APPX 0.25 CM DEEP. 2ND TOE IS BLACK BUTTOCK: 1 CM CIRCULAR STAGE II
[2019-04-22 18:23] VITALS: BP 132/76
--- NOTE | 2019-04-22 19:18 | NUR ---
AWAKE AND ALERT. RESTING IN BED WITH RESPIRATIONS UNLABORED. NO DISTRESS NOTED. O2/6L ON PER HIGH FLOW. CALL LIGHT IN REACH.
--- NOTE | 2019-04-22 19:20 | NUR ---
AWAKE AND RESTING IN BED DOZING AT INTERVALS. RESPIRATIONS UNLABORED. RIGHT FISTULA INTACT. DRESSINGS INTACT TO BILATERAL LOWER EXTREMITIES. NO DISTRESS NOTED. CALL LIGHT IN REACH.
[2019-04-23 00:03] VITALS: BP 147/74
--- NOTE | 2019-04-23 00:05 | NUR ---
RESTING IN BED WITH NO DISTRESS NOTED. TEMPERATURE 99.5. RESPIRATIONS UNLABORED. CALL LIGHT IN REACH.
[2019-04-23 03:14] LABS: BASOPHILS 0.2 % (0-2); EOSINOPHILS 1.5 % (0-7); HEMATOCRIT 24.4 % (36.0-48.0); IMMATURE GRANULOCYTES 0.4 % (0-5); LYMPHOCYTES 9.2 % (15-50); MCH 28.2 pg (26.0-34.0); MCHC 30.7 g/dL (31.0-37.0); MCV 91.7 fL (80.0-100.0); NEUTROPHILS 77.7 % (40-80); PLATELET COUNT 400 10x3/uL (130-400); RBC 2.66 10x6/uL (4.00-5.40); RDW 16.7 % (11.5-14.5); WBC 10.7 10x3/uL (4.8-10.8)
[2019-04-23 03:18] LABS: ANION GAP 14.5 mmol/L (8-16); CALCIUM 7.6 mg/dL (8.5-10.1); CARBON DIOXIDE 30.7 mmol/L (21.0-32.0); POTASSIUM - SERUM 4.2 mmol/L (3.5-5.1)
[2019-04-23 03:19] LABS: HEMOGLOBIN 7.5 g/dL (12-16)
[2019-04-23 03:21] LABS: CREATININE - SERUM 6.7 mg/dL (0.6-1.3)
[2019-04-23 06:01] VITALS: BP 170/76
--- NOTE | 2019-04-23 06:48 | NUR ---
DR CASPER NOTIFIED OF CRITICAL LAB VALUES AND NEW ORDER RECIEVED FOR ONE UNIT PRBC TO BE GIVEN DURING DIALYSIS.
--- NOTE | 2019-04-23 07:37 | NUR ---
ALERT WITH CONFUSION AT TIMES. DIALYSIS T-TH-S. RENAL MD WAS NOTIFIED OF H/H/ 7.5/24.4 THIS AM. WILL RECIEVE BLOOD TRANSFUSION DURING DIALYSIS. CL IN REACH.
[2019-04-23 08:51] VITALS: BP 140/77
[2019-04-23 11:39] VITALS: Ht 157.5 cm; Wt 59.1 kg
[2019-04-23 13:05] VITALS: BP 154/86
--- NOTE | 2019-04-23 15:32 | NUR ---
SHOWER GIVEN TODAY PER NURSING.
--- NOTE | 2019-04-23 19:30 | NUR ---
PATIENT IS BACK FROM DIALYSIS. SHE IS RESTING IN HER BED. BED IS DOWN LOW WITH SIDE RAILS UP X2. CALL LIGHT IN REACH. BED ALARM ACTIVATED.
[2019-04-23 20:35] VITALS: BP 171/85
--- NOTE | 2019-04-24 | NUR ---
PATIENT IS RESTING IN HER BED WITH EYES CLOSED.
[2019-04-24 00:41] VITALS: BP 161/83
--- NOTE | 2019-04-24 04:00 | NUR ---
PATIENT IS AWAKE. SHE DENIES ANY NEEDS. BED IS DOWN LOW WITH SIDE RAILS UP X3. BED ALARM ACTIVATED AND CALL LIGHT IN REACH.
[2019-04-24 05:27] VITALS: BP 165/85
[2019-04-24 08:31] VITALS: BP 169/93
--- NOTE | 2019-04-24 10:05 | NUR ---
SITTING UP IN CHAIR. NO C/O PAIN. RESP EVEN AND UNLABORED WITH 6L HIGH FLOW. SOB WITH EXERTION. CL IN REACH.
--- NOTE | 2019-04-24 10:12 | NUR ---
RESTING IN BED. NO C/O PAIN. CL IN REACH. RESP EVEN AND UNLABORED.
[2019-04-24 12:57] VITALS: BP 139/84
--- NOTE | 2019-04-24 15:38 | NUR ---
NO CHANGE IN ASSESSMENT. RESTING WITH EYES CLOSED. RESP EVEN AND UNLABORED. CL IN REACH.
[2019-04-24 16:39] VITALS: BP 152/86
--- NOTE | 2019-04-24 19:37 | NUR ---
REPORT RECIEVED AND ROUNDING COMPLETE. PATIENT LAYING IN BED EYES CLOSED BREATHING EVEN AND UNLABORED. NO S/SX OF DISTRESS AT THIS TIME. PATIENT'S CALL LIGHT WITHIN REACH AND BED IN LOWEST LOCKED POSITION.
--- NOTE | 2019-04-24 21:19 | NUR ---
PATIENT SLEEPING AT THIS TIME. WILL CONTINUE TO MONITOR.
--- NOTE | 2019-04-24 22:07 | NUR ---
CHANGE BILATERAL LEG DRESSINGS. PATIENT TOLERATED WELL, SHE SLEPT THROUGH THE WHOLE THING .
--- NOTE | 2019-04-24 22:51 | NUR ---
PATIENT LAYING IN BED EYES CLOSED BREATHING EVEN AND NON-LABORED. CALL LIGTH WITH IN REACH BED IN LOWEST LOCKED POSITION. BED ALARM ON.
[2019-04-25 00:39] VITALS: BP 159/81
--- NOTE | 2019-04-25 01:08 | NUR ---
PATIENT LAYING IN BED EYES CLOSED BREATHING SHALLOW AND EVEN. NO S/SX OF DISTRESS. CALL LIGHT WITHIN REACH.
--- NOTE | 2019-04-25 04:22 | NUR ---
PATIENT IS LAYING IN BED EYES CLOSED AND BRETHING EVEN AND UNLABORED. CALL LIGTH WITHIN REACH
--- NOTE | 2019-04-25 05:09 | NUR ---
UNABLE TO WEIGHT PATIENT, ERROR READING ON BED, PATIENT STATES HE CAN NOT GET OUT OF BED.
[2019-04-25 05:32] VITALS: BP 155/82
[2019-04-25 06:13] LABS: BASOPHILS 0.2 % (0-2); HEMATOCRIT 32.9 % (36.0-48.0); HEMOGLOBIN 10.8 g/dL (12-16); IMMATURE GRANULOCYTES 0.3 % (0-5); MCH 29.8 pg (26.0-34.0); MCHC 32.8 g/dL (31.0-37.0); MCV 90.9 fL (80.0-100.0); MEAN PLATELET VOLUME 9.8 fL (7.4-10.4); MONOCYTES 10.1 % (2-11); NEUTROPHILS 79.4 % (40-80); PLATELET COUNT 426 10x3/uL (130-400); RBC 3.62 10x6/uL (4.00-5.40); RDW 16.5 % (11.5-14.5); WBC 11.8 10x3/uL (4.8-10.8)
[2019-04-25 06:27] LABS: ANION GAP 19.3 mmol/L (8-16); CALCIUM 8.6 mg/dL (8.5-10.1); CARBON DIOXIDE 25.3 mmol/L (21.0-32.0); CREATININE - SERUM 6.9 mg/dL (0.6-1.3); POTASSIUM - SERUM 4.6 mmol/L (3.5-5.1)
--- NOTE | 2019-04-25 09:16 | NUR ---
ADMININSTERED MORNING MEDS WHOLE WITHOUT DIFFICULTY. BP 156/82.. DENIES ANY NEEDS OR PAIN. NO SIGNS OF DISTRESS NOTED. CALL LIGHT WITHIN REACH, FALL PRECAUTIONS IN PLACE. WILL CONTINUE TO MONITOR
[2019-04-25 12:14] VITALS: BP 148/78
--- NOTE | 2019-04-25 15:02 | NUR ---
LYING IN BED EYES CLOSED RESTING. RR EVEN AND UNLABORED. CALL LIGHT WITHIN REACH, FALL PRECAUTIONS IN PLACE. WILL CONTINUE TO MONITOR
[2019-04-25 18:08] VITALS: BP 140/77
--- NOTE | 2019-04-25 19:31 | NUR ---
AWAKE AMD RESTMING IN BED. RESPIRATIONS UNLABORED. RIGHT ARM FISTULA INTACT. DRESSINGS INTACT TO BLE'S. DAUGHTER VISITING IN ROOM.
[2019-04-26 00:07] VITALS: BP 149/80
--- NOTE | 2019-04-26 05:11 | NUR ---
QUIET HOURS. RESTING IN BED WITH RESPIRATIONS UNLABORED. NO DISTRESS NOTED. CALL LIGHT IN REACH.
--- NOTE | 2019-04-26 05:53 | NUR ---
BLOOD SUGAR 54. AWAKE AND ALERT. SKIN WARM AND DRY. 8 OUNCES ORANGE JUICE WITH 2 PACKS OF SUGAR GIVEN PO. WILL RECHECK BLOOD SUGAR BEFORE END OF SHIFT.
--- NOTE | 2019-04-26 06:20 | NUR ---
BLOOD SUGAR NOW 147. ALERT AND ORIENTED. STATED SHE DID NOT EAT MUCH YESTERDAY. NO DISTRESS NOTED. AT THIS TIME. BOX REPAIRER HERE DRAWING LAB SPECIMENS.
[2019-04-26 06:24] VITALS: BP 120/57
[2019-04-26 07:11] LABS: ANION GAP 20.2 mmol/L (8-16); CALCIUM 8.1 mg/dL (8.5-10.1); CARBON DIOXIDE 23.7 mmol/L (21.0-32.0); PHOSPHOROUS 6.1 mg/dL (2.5-4.9); POTASSIUM - SERUM 4.9 mmol/L (3.5-5.1); VANCOMYCIN - RANDOM 11.5 ug/mL (10.0-20.0)
[2019-04-26 07:15] LABS: BASOPHILS 0.3 % (0-2); EOSINOPHILS 3.6 % (0-7); HEMATOCRIT 30.9 % (36.0-48.0); HEMOGLOBIN 9.8 g/dL (12-16); IMMATURE GRANULOCYTES 0.7 % (0-5); LYMPHOCYTES 7.7 % (15-50); MCHC 31.7 g/dL (31.0-37.0); MCV 91.4 fL (80.0-100.0); MONOCYTES 8.3 % (2-11); NEUTROPHILS 79.4 % (40-80); PLATELET COUNT 442 10x3/uL (130-400); RBC 3.38 10x6/uL (4.00-5.40); RDW 16.7 % (11.5-14.5); WBC 11.8 10x3/uL (4.8-10.8)
[2019-04-26 07:16] LABS: CREATININE - SERUM 8.9 mg/dL (0.6-1.3)
--- NOTE | 2019-04-26 07:54 | NUR ---
ALERT AND ORIENTED. NO C/O PAIN. CL IN REACH.
[2019-04-26 08:52] VITALS: BP 105/53
--- NOTE | 2019-04-26 12:39 | NUR ---
Nutrition follow up Renal diet with 66% average po intake Nepro ordered on all trays Pt has several Nepro on bedside table Pt reports she is not able to tolerate Nepro. Will d/c Nepro Encouraged good po intake especially protein RD following
--- NOTE | 2019-04-26 12:57 | NUR ---
SODIUM THIOSULFATE AND VANCOMYCIN SENT WITH PATIENT TO DIALYSIS TO BE GIVEN IN DIALYSIS PER MD ORDER.
--- NOTE | 2019-04-26 13:18 | NUR ---
CHANGED BED LINENS. AT DIALYSIS AT THIS TIME.
--- NOTE | 2019-04-26 16:10 | NUR ---
RETURNED TO ROOM FROM DIALYSIS IN . NO DISTRESS NOTED. VSS. R ARM FISTULA WITH DRESSING CDI . BP 127/79 HR 78 97.6 18. DIALYSIS REMOVED 3L OFF.
[2019-04-26 17:46] VITALS: BP 99/63
--- NOTE | 2019-04-26 18:32 | NUR ---
NO CHANGE IN ASSESSMENT. NO C/O PAIN AT THIS TIME. CL IN REACH.
--- NOTE | 2019-04-26 19:05 | NUR ---
AWAKE AND ALERT. RESTING IN BED WITH RESPIRATIONS UNLABORED. RIGHT ARM FISTULA INTACT. DRESSINGS INTACT TO BILATERAL LOWER EXTREMITIES. NO DISTRESS NOTED. CALL LIGHT IN REACH.
[2019-04-27 00:12] VITALS: BP 118/65
--- NOTE | 2019-04-27 05:07 | NUR ---
QUIET HOURS. RESTING IN BED WITH NO DISTRESS NOTED. DRESSINGS CHANGED TO BILATERAL LOWER EXTREMITIES. NO ACUTE DISTRESS NOTED. CALL LIGHT IN REACH.
[2019-04-27 06:32] VITALS: BP 122/69
[2019-04-27 07:23] LABS: BASOPHILS 0.4 % (0-2); EOSINOPHILS 2.2 % (0-7); HEMATOCRIT 32.9 % (36.0-48.0); HEMOGLOBIN 10.6 g/dL (12-16); IMMATURE GRANULOCYTES 0.7 % (0-5); LYMPHOCYTES 8.8 % (15-50); MCH 29.2 pg (26.0-34.0); MCHC 32.2 g/dL (31.0-37.0); MCV 90.6 fL (80.0-100.0); MEAN PLATELET VOLUME 10.1 fL (7.4-10.4); MONOCYTES 9.3 % (2-11); NEUTROPHILS 78.6 % (40-80); PLATELET COUNT 443 10x3/uL (130-400); RBC 3.63 10x6/uL (4.00-5.40); RDW 16.4 % (11.5-14.5)
[2019-04-27 07:33] LABS: ANION GAP 21.9 mmol/L (8-16); CALCIUM 8.6 mg/dL (8.5-10.1); CARBON DIOXIDE 25.6 mmol/L (21.0-32.0); CREATININE - SERUM 7.1 mg/dL (0.6-1.3); POTASSIUM - SERUM 4.5 mmol/L (3.5-5.1)
--- NOTE | 2019-04-27 08:00 | NUR ---
PATIENT SITTING UP IN BED TO EAT BREAKFAST. PATIENT IS ALERT/ORIENT. CALL LIGHT WITHIN REACH. VOICES NO NEEDS. WILL CONTINUE WITH PLAN OF CARE
[2019-04-27 08:46] VITALS: BP 131/69
--- NOTE | 2019-04-27 09:46 | NUR ---
PATIENT IN REHAB ROOM. WORKING WITH PHYSICAL THERAPIST. DENIES ANY PAIN/DISC AT THIS TIME.
--- NOTE | 2019-04-27 10:06 | NUR ---
PATIENT ADMITTED TO REHAB FROM ACUTE FLOOR. PATIENT PCP IS DR. NELSON FLORES. DME AT HOME IS A WALKER, CANE, WHEELCHAIR AND A BEDSIDE COMMODE. PATIENT HAS HD AT [facility] ON .IF PATIENT UNABLE TO RETURN HOME SHE WOULD LIKE A REFERAL TO BE SENT TO [facility]. WILL CONTINUE TO FOLLOW WITH PATIENT.
--- NOTE | 2019-04-27 12:00 | NUR ---
SITTING ON SIDE OF BED EATING LUNCH,CL IN REACH.DAUGHTER AT BEDSIDE.
--- NOTE | 2019-04-27 12:56 | NUR ---
PATIENTS FAMILY INTO SEE PATIENT. ATTENDED CARE PLAN MEETING
[2019-04-27 13:17] VITALS: BP 119/70
--- NOTE | 2019-04-27 17:37 | NUR ---
DR FRANCO INTO SEE PATIENT. PATIENT IN THE BATHROOM. DR FRANCO STATED HE WILL COME BACK AND SEE PATIENT TOMORROW
[2019-04-27 18:27] VITALS: BP 131/69
--- NOTE | 2019-04-27 19:52 | NUR ---
AWAKE AND ALERT. DR LEE WAS HERE AND CHANGED BILATERAL LOWER EXTREMITIES. PATIENT INCONTINENT OF BM AND BRIEF CHANGED AND INCONTINENCE CARE GIVEN. REPOSITIONED FOR COMFORT. NO DISTRESS NOTED. CALL LIGHT IN REACH.
[2019-04-28 00:11] VITALS: BP 136/75
--- NOTE | 2019-04-28 05:13 | NUR ---
BED BATH GIVEN AND LINENS CHANGED. HAS HAD 2 LOOSE BM'S THIS SHIFT. STATES "MY SUPPER TORE MY STOMACH UP". REPSIRAITONS UNLABORED. DRESSINGS INTACT TO BILATERAL LOWER EXTREMITIES. NO DISTRESS NOTED.
[2019-04-28 05:33] VITALS: BP 135/75
[2019-04-28 07:24] LABS: % SATURATION 14 % (15-55); IRON 24 ug/dl (35-150); TOTAL IRON BIND CAPACITY 171 ug/dl (260-445); UNSAT IRON BIND CAPACITY 147 ug/dl (150-375)
[2019-04-28 07:32] LABS: PHOSPHOROUS 6.3 mg/dL (2.5-4.9); THYROID STIMULATING HORMONE 4.69 uIU/mL (0.36-3.74); VANCOMYCIN - RANDOM 15.7 ug/mL (10.0-20.0)
--- NOTE | 2019-04-28 08:07 | NUR ---
PT RESTGING IN BED WITH EYES OPEN CALL LIGHT IN REACH WILL MONITER
[2019-04-28 11:36] VITALS: BP 123/68
--- NOTE | 2019-04-28 13:10 | NUR ---
PT TRANSPORTED TO DIALYSIS BY BED
[2019-04-28 19:56] VITALS: BP 148/78
--- NOTE | 2019-04-28 20:00 | NUR ---
PATIENT RECEIVED SITTING UP IN BED. FAMILY AT BEDSIDE. VITAL SIGNS & ASSESSMENT DONE. DRESSING C/D/I. NO C/O PAIN OR DISTRESS. ALARM ON. BED LOW. CALL LIGHT WITHIN REACH. WILL CONTINUE TO MONITOR.
[2019-04-29 00:07] VITALS: BP 126/75
--- NOTE | 2019-04-29 00:19 | NUR ---
PATIENT VITAL SIGNS TAKEN. CALL LIGHT WITHIN REACH. BED LOW. ALARM ON. WILL CONTINUE TO MONITOR.
--- NOTE | 2019-04-29 02:47 | NUR ---
PT IN BED LOWEST POSITION, EYES CLOSED AROUSES EASILY TO VOICE, RESPIRATIONS EVEN AND UNLABORED, NO NEEDS NOTED, FLUIDS AND CALL LIGHT WITHIN REACH.
[2019-04-29 06:22] VITALS: BP 127/67
[2019-04-29 06:52] LABS: CALCIUM 8.8 mg/dL (8.5-10.1); CARBON DIOXIDE 27.3 mmol/L (21.0-32.0); CREATININE - SERUM 7.2 mg/dL (0.6-1.3); POTASSIUM - SERUM 4.3 mmol/L (3.5-5.1)
[2019-04-29 07:01] LABS: BASOPHILS 0.4 % (0-2); EOSINOPHILS 2.7 % (0-7); HEMATOCRIT 31.9 % (36.0-48.0); HEMOGLOBIN 10.1 g/dL (12-16); IMMATURE GRANULOCYTES 0.8 % (0-5); LYMPHOCYTES 6.5 % (15-50); MCH 28.9 pg (26.0-34.0); MCHC 31.7 g/dL (31.0-37.0); MCV 91.1 fL (80.0-100.0); MEAN PLATELET VOLUME 10.3 fL (7.4-10.4); MONOCYTES 8.2 % (2-11); NEUTROPHILS 81.4 % (40-80); PLATELET COUNT 501 10x3/uL (130-400); RDW 16.4 % (11.5-14.5); WBC 13.2 10x3/uL (4.8-10.8)
--- NOTE | 2019-04-29 07:15 | NUR ---
RECEIVED REPORT. SITTING UP IN BED ALERT AND ORIENTED X4. DENIES ANY NEEDS OR PAIN. RR EVEN AND UNLABORED. CALL LIGHT WITHIN REACH, FALL PRECAUTIONS IN PLACE. WILL CONTINUE TO MONITOR
--- NOTE | 2019-04-29 11:03 | NUR ---
IN THERAPY GYM PARTICIPATING IN PT. NO SIGNS OF DISTRESS NOTED.
[2019-04-29 12:01] VITALS: BP 117/56
--- NOTE | 2019-04-29 17:31 | NUR ---
SITTING UP IN BED EATING DINNER. FAMILY AT BEDSIDE. NO SIGNS OF DISTRESS NOTED. CALL LIGHT WITHIN REACH, FALL PRECAUTIONS IN PLACE. WILL CONTINUE TO MONITOR
[2019-04-29 18:23] VITALS: BP 103/56
[2019-04-29 20:00] VITALS: BP 130/69
--- NOTE | 2019-04-29 20:00 | NUR ---
PATIENT RECEIVED LAYING IN BED WITHI FAMILY AT BEDSIDE. PATIENT VITAL SIGNS & ASSESSMENT DONE. NO C/O PAIN OR DISTRESS. BED LOW. ALARM ON. CALL LIGHT WITHIN REACH. WILL CONTINUE TO MONITOR.
--- NOTE | 2019-04-29 23:30 | NUR ---
PATIENT EYES CLOSED. RESPIRATIONS 18 & EVEN. BED LOW. CALL LIGHT WITHIN REACH. ALARM ON. WILL CONTINUE TO MONITOR.
[2019-04-30 00:35] VITALS: BP 146/72
--- NOTE | 2019-04-30 02:06 | NUR ---
I have reviewed this patient and I concur with the Shift Assessment completed by the Licensed Practical Nurse today this shift.
[2019-04-30 07:09] VITALS: BP 137/66
--- NOTE | 2019-04-30 08:30 | NUR ---
PT AM MEDS ADMINISTERED. PT DENIES NEEDS. WCTM.
[2019-04-30 12:27] VITALS: BP 117/65
--- NOTE | 2019-04-30 15:45 | NUR ---
CALLED DIALYSIS TO CONFIRM PT WAS GOING TO DIALYSIS TODAY. DIALYSIS NURSE STATED IT WOULD BE A LITTLE OVER AN HOUR BEFORE SHE CALLED FOR PT.
--- NOTE | 2019-04-30 17:55 | NUR ---
PT TAKEN TO DIALYSIS.
--- NOTE | 2019-04-30 22:00 | NUR ---
PT RETURNED FROM DIALYSIS. NO ISSUES NOTED. PT HAS RIGHT RIGHT UPPER ARM FISTULA THAT HAS THRILL AND BRUITT PRESENT. PT IS ALERT AND ORIENTED. DENIES ISSUES AT THIS TIME. PT HAS ULCERS TO BILATERAL LOWER EXTREMETIES WITH DRESSING CLEAN DRY AND INTACT. CALL LIGHT IN REACH.
[2019-05-01] VITALS: BP 115/71
--- NOTE | 2019-05-01 03:27 | NUR ---
I have reviewed this patient and I concur with the Shift Assessment completed by the Licensed Practical Nurse today this shift.
[2019-05-01 05:56] VITALS: BP 126/70
--- NOTE | 2019-05-01 09:10 | NUR ---
PT AM MEDS ADMINISTERED. PT DENIES NEEDS. WCTM.
[2019-05-01 12:47] VITALS: BP 114/65
[2019-05-01 17:03] VITALS: BP 141/73
--- NOTE | 2019-05-01 19:12 | NUR ---
PT RESTING QUIETLY. EYES CLOSED. NO DISTRESS NOTED. CL IN REACH. WCTM
--- NOTE | 2019-05-01 23:29 | NUR ---
PT LYING IN BED. CALL LIGHT IN REACH. DENIES NEEDS OR PAIN AT THIS TIME. BED IN LOW. SIDE RAILS X2. RECIEVED NIGHT MEDS. ASSESSMENT COMPLETED AT 1940. RESP EVEN AND UNLABORED. LUNGS CLEAR. BOWEL ACTIVE X4. WCTM
[2019-05-02 00:43] VITALS: BP 94/50
--- NOTE | 2019-05-02 03:43 | NUR ---
I have reviewed this patient and I concur with the Shift Assessment completed by the Licensed Practical Nurse today this shift.
--- NOTE | 2019-05-02 05:28 | NUR ---
PT RESTING QUIETLY. CL IN REACH. NO DISTRESS NOTED. EYES CLOSED. WCTM
[2019-05-02 06:03] VITALS: BP 123/57
[2019-05-02 06:58] LABS: ANION GAP 21.4 mmol/L (8-16); CALCIUM 9.8 mg/dL (8.5-10.1); CREATININE - SERUM 8.9 mg/dL (0.6-1.3); POTASSIUM - SERUM 4.4 mmol/L (3.5-5.1)
[2019-05-02 07:08] LABS: BASOPHILS 0.4 % (0-2); EOSINOPHILS 1.8 % (0-7); HEMATOCRIT 31.7 % (36.0-48.0); HEMOGLOBIN 9.9 g/dL (12-16); IMMATURE GRANULOCYTES 0.8 % (0-5); LYMPHOCYTES 7.4 % (15-50); MCH 28.9 pg (26.0-34.0); MCHC 31.2 g/dL (31.0-37.0); MCV 92.4 fL (80.0-100.0); MEAN PLATELET VOLUME 10.1 fL (7.4-10.4); MONOCYTES 7.2 % (2-11); NEUTROPHILS 82.4 % (40-80); PLATELET COUNT 508 10x3/uL (130-400); RBC 3.43 10x6/uL (4.00-5.40); RDW 16.4 % (11.5-14.5); WBC 15.7 10x3/uL (4.8-10.8)
--- NOTE | 2019-05-02 07:30 | NUR ---
RESTING WO DISTRESS. RESP EVEN AND UNLABORED. CL IN REACH.
--- NOTE | 2019-05-02 09:47 | RHP ---
PATIENT: FRANCES BECKER MEDICAL RECORD: [id number] ACCOUNT: [id number] [facility] [id number] : 52 ADMISSION DATE: 04/22/19 REHABILITATION HISTORY AND PHYSICAL EXAMINATION POST ADMISSION PHYSICIAN EXAMINATION POST ADMISSION PHYSICAL EXAMINATION AND HISTORY AND PHYSICAL DATE OF ADMISSION: 04/22/2019 ADMITTING DIAGNOSIS: Under uremic myopathy. HISTORY OF PRESENT ILLNESS: The patient is a 68-year-old female, who is admitted to the ER complaining of generalized weakness, fatigue, and malaise, exacerbated the day before. She is an end-stage renal dialysis patient. She undergoes dialysis on Thursday, , and Thursday. She has been compliant. On her usual day of dialysis, she is just too weak to go. Her weakness had become worse. She was unable to ambulate even with a walker. Labs showed an H&H of 7 and 23. She had a positive stool guaiac. BUN and creatinine of 70 and 9.3. She was admitted for GI consult. EGD showed a grade A reflux esophagitis and mild diffuse gastritis. The patient reports that she had diverticulosis in the past. She is also status post vascular surgery in her bilateral lower extremities about 3 weeks ago and will be placed on Plavix. Has been seeing a it security project manager for gangrene in her toes. He performed excisional debridement and performed using a 15 blade to the dorsal foot to the subcutaneous tissue with [id number] bleeding. He was able to do most of this just under local anesthetic. All the ulcerations to her lower extremities were covered with Adaptic and Betadine. Areas were painted along her dorsal second digit with Betadine and covered with Kerlix. Previously, she was moderately independent for ADLs and mobility using a rolling walker. Currently, she has had prolonged immobility, progressive generalized weakness especially in her lower extremities. She is very fatigued, has limited flexion and extension of her lower extremities. Proximal muscle strength is decreased. She is mod-to-max assist for ADLs and mod-to-max assist for sit to stand. These are all barriers to discharge home at this time. She is highly motivated to regain her strength and return back home. Comorbidities include end-stage renal disease, hypertension, anemia of chronic disease, blood loss anemia, GI bleed, weakness, malaise, fatigue, type 2 diabetes, hyperlipidemia, hypoglycemia, bradycardia, hypothyroidism, depression, pressure ulcers. PAST MEDICAL HISTORY: Significant for diabetes, hypertension, gangrene to her extremities. PAST SURGICAL HISTORY: Includes gallbladder surgery, partial hysterectomy. She has had a renal biopsy in the past. ALLERGIES: PENICILLIN, ASPIRIN, ERYTHROMYCIN, STRAWBERRIES, SHELLFISH. CURRENT MEDICATIONS: Include sodium thiosulfate, she is on 25 g IV on Thursday, , Thursday. She is on Lantus 10 units subcutaneous daily, Plavix 75 mg daily, Sensipar 90 mg daily, Protonix 40 mg b.i.d., Synthroid 100 mcg daily, simvastatin 40 mg at bedtime, Lyrica 50 mg b.i.d., labetalol 400 mg t.i.d. She is on hydrocortisone cream to apply b.i.d., tramadol 50 mg every 4 hours p.r.n., HISTORY AND PHYSICAL [id number] FRANCES BECKER Renagel 3200 mg t.i.d. with meals, Ativan 1 mg t.i.d. p.r.n., Procrit 2000 units every 48 hours, and Catapres 0.3 mg q.i.d. HABITS: No current alcohol or tobacco use. FAMILY HISTORY: Noncontributory. SOCIAL HISTORY: The patient once again hopes to return back home. REVIEW OF SYSTEMS: GENERAL: Does complain of weakness and fatigue. HEENT: Denies cold, cough, or congestion. CARDIOVASCULAR: Denies any chest pain. PHYSICAL EXAMINATION: VITAL SIGNS: Show temperature of 97.9, pulse of 78, respirations are 16, her blood pressure is 140/77, and pulse ox is 99%. GENERAL: A well-developed elderly white female, in no acute distress upon exam. HEENT: Normocephalic and atraumatic. Mucosa moist. NECK: Supple, with no lymphadenopathy. LUNGS: Clear in the upper rivers and no irregular breath sounds in her bases. HEART: Regular rate and rhythm. No murmurs, rubs or gallops. ABDOMEN: Soft, benign, nondistended. Positive bowel sounds times 4. EXTREMITIES: Does have changes with severe peripheral vascular disease and dressings are in place. NEUROLOGIC: She does have noted proximal muscle weakness. LABORATORY DATA: White count is 10.7, H&H of 7.5 and 24.4, and platelet count is 400. Her sodium is 139, potassium 4.2, BUN and creatinine of 45 and 6.7, blood sugar is noted to be 115. ASSESSMENT: This is a 68-year-old female patient admitted to the rehab with a working diagnosis of uremic myopathy. The patient has potential to make improvement. We will institute the following multidisciplinary therapies including, but not limited to, physical, occupational, respiratory, speech, nutritional services, prosthetics, and orthotics. Given her complex medical condition and risks for more complications, rehabilitation services cannot be provided at a lower level of care such as a skilled nurse facility. PLAN: 1. Admit to [facility] for inpatient therapy to include the following disciplines; A. Physical therapy to improve gait, all transfer skills, and bed mobility to modified independent level. B. Occupational therapy to modified independent level. C. Case management to assist with discharge planning and placement options. D. Nutrition to assist with nutritional needs. E. Rehabilitation nursing to assist in monitoring the patient's underlying medical conditions and to assist with any type of bowel or bladder management. 2. The patient's current medications and medical care will be continued. 3. The patient will be placed on standard fall precautions. 4. We will continue her medications that are appropriate, and we will watch her H&H closely. Anticipate that renal will probably give her blood in dialysis. 5. I am going to see her again in the a.m. HISTORY AND PHYSICAL [id number] FRANCES BECKER TRANSINT:[id number] Voice Confirmation ID: [id number] DOCUMENT ID: [id number] RANDEE notes whether there has been none or any medical/functional change since admission: - No change since prescreen. RANDEE attests patient continues to be appropriate for IRF: - Continues to be appropriate. DENISE MORIN MD at [id number] CC: [id number] DICTATION DATE: 04/23/19928 TRUCK CAR AND BUS CLEANER: 04/23/19 1057 [place] [address]
[2019-05-02 11:30] VITALS: BP 91/48
--- NOTE | 2019-05-02 13:46 | NUR ---
PARTICIPATED IN THERAPY. NO C/O PAIN.
[2019-05-02 17:05] VITALS: BP 109/61
--- NOTE | 2019-05-02 17:55 | NUR ---
NO CHANGE IN ASSESSMENT. CL IN REACH.
--- NOTE | 2019-05-02 19:30 | NUR ---
PT LYING IN BED. CALL LIGHT IN REACH. DENIES NEEDS AT THIS TIME. BED IN LOW SIDE RAILS X2. A/O X4. WCTM
--- NOTE | 2019-05-02 21:50 | NUR ---
ADMINISTERED NIGHT MEDS. DENIES NEEDS. ASSISTED TO AND FROM BATHROOM. BACK IN BED. CL IN REACH. LUNGS CLEAR. A/O X4. BOWEL ACTIVE X4. WCTM. RESP EVEN AND UNLABORED.
[2019-05-03 00:23] VITALS: BP 126/63
--- NOTE | 2019-05-03 03:34 | NUR ---
PT RESTING QUIETLY. CL IN REACH. NO DISTRESS NOTED. WCTM
--- NOTE | 2019-05-03 04:40 | NUR ---
PT IN BED LOWEST POSITION, EYES CLOSED AROUSES EASILY TO VOICE, RESPIRATIONS EVEN AND UNLABORED, NO NEEDS NOTED, FLUIDS AND CALL LIGHT WITHIN REACH
--- NOTE | 2019-05-03 04:43 | NUR ---
I have reviewed this patient and I concur with the Shift Assessment completed by the Licensed Practical Nurse today this shift.
--- NOTE | 2019-05-03 06:05 | NUR ---
FSBS 114
[2019-05-03 06:30] VITALS: BP 144/70
--- NOTE | 2019-05-03 07:25 | NUR ---
RESTING WO DISTRESS. RESP EVEN AND UNLABORED. CL IN REACH.
--- NOTE | 2019-05-03 11:27 | NUR ---
SHOWER GIVEN THIS AM PER NURSING. RESTING AT THIS TIME. PARTICIPATED IN THERAPY THIS AM.
[2019-05-03 11:28] VITALS: BP 123/71
--- NOTE | 2019-05-03 12:13 | NUR ---
NUTRITION F/U CHART REVIEWED, RENAL DIET WITH ~75% INTAKE RECENT MEALS. +BM RECORDED. WILL CONTINUE TO PROVIDE RENAL DIET, MONITOR PO INTAKE. RD FOLLOWING
--- NOTE | 2019-05-03 12:58 | NUR ---
WILL SEND SODIUM THIOSULFATE TO DIALYSIS WITH TUBING. NOTIFIED DIALYSIS I WAS SENDING IT. ALSO, LET THEM KNOW CLONIDINE WAS HELD FOR BP 123/71.
--- NOTE | 2019-05-03 15:10 | NUR ---
TOOK TO DIALYSIS BY RICARDO. SODIUM THIOSULFATE SENT TO DIALYSIS TO BE GIVEN IN DIALYSIS.
--- NOTE | 2019-05-03 18:13 | NUR ---
RETURNED FROM DIALYSIS. EATING DINNER. NO CHANGE IN ASSESSMENT. FAMILY AT BS.
[2019-05-03 18:17] VITALS: BP 99/63
--- NOTE | 2019-05-03 19:21 | NUR ---
PT SITTING UP IN BED. VISITORS IN ROOM. DENIES NEEDS AT THIS TIME. BED IN LOW SIDE RAILS X2. CL IN REACH. A/O X4. WCTM
--- NOTE | 2019-05-03 22:00 | NUR ---
PT WAVED THIS NURSE TO COME IN ROOM WHEN PASSING BY. PT STATED SHE WANTED TO GET UP AND USE BATHROOM AND GET READY FOR BED. THIS NURSE ASSISTED PT FROM BED TO WHEELCHAIR BUT PT WOULD NOT STAND. PT KEPT TRYING TO SCOOT OVER IN CHAIR WITHOUT STANDING UP. PT DID NOT TRY AND HELP WHILE DOING THIS. THIS NURSE TRIED ONE MORE TIME TO GET PT FROM BED TO WHEELCHAIR AND PT STOOD UP FOR A SECOND AND THEN GAVE UP AND JUST LET HER KNEES BUCKLE AND WOULD NOT TRY TO STRAIGHTEN THEM AND PT STATED "I CANT DO IT JUST LET ME DOWN TO THE GROUND." ASSISTED PT TO THE FLOOR AND HAD 2 OTHER NURSES ASSIST PT FROM FLOOR TO BED. PT THEN WANTED TO ARGUE ABOUT GOING TO THE BATHROOM BUT THIS NURSE ENCOURAGED WE STAYED IN BED DUE TO NOT BEING ABLE TO STAND. PUT PT ON BEDPAN AND THEN PT STATED SHE DID NOT HAVE TO URINATE OR HAVE A BM SHE JUST WANTED TO WASH UP. CLEANED PT APPLIED NEW BRIEF. CL IN REACH. WCTM. THIS IS NOT NORMAL FOR PT. PT IS USUALLY A MIN ASSIST TO WHEELCHAIR.
[2019-05-04 00:14] VITALS: BP 117/62
--- NOTE | 2019-05-04 01:02 | NUR ---
PT IN BED LOWEST POSITION, EYES CLOSED AROUSES EASILY TO VOICE, RESPIRATIONS EVEN AND UNLABORED, NO NEEDS NOTED, FLUIDS AND CALL LIGHT WITHIN REACH
--- NOTE | 2019-05-04 04:53 | NUR ---
PT TRYING TO GET OUT OF BED STATED "I WAS GOING TO THE SCHOOL BECAUSE THEY WERE TALKING ABOUT ME." ATTEMPTED TO REORIENTATE PT AND ASSISTED HER BACK IN BED LYING DOWN. BED ALARM ON. PT HAS NOT BEEN LIKE THIS THE PAST COUPLE OF NIGHTS. ANNA
[2019-05-04 06:28] VITALS: BP 119/63
[2019-05-04 06:46] LABS: HEMOGLOBIN 9.6 g/dL (12-16); MCH 28.7 pg (26.0-34.0); MCV 89.6 fL (80.0-100.0); PLATELET COUNT 470 10x3/uL (130-400); RBC 3.35 10x6/uL (4.00-5.40); WBC 24.8 10x3/uL (4.8-10.8)
[2019-05-04 06:55] LABS: ANION GAP 22.5 mmol/L (8-16); CALCIUM 9.9 mg/dL (8.5-10.1); CARBON DIOXIDE 26.4 mmol/L (21.0-32.0); CREATININE - SERUM 7.6 mg/dL (0.6-1.3); PHOSPHOROUS 3.3 mg/dL (2.5-4.9); POTASSIUM - SERUM 3.9 mmol/L (3.5-5.1)
[2019-05-04 08:02] LABS: ANISOCYTOSIS OCC; HYPOCHROMASIA OCC; LYMPHOCYTES 5 % (15-50); MONOCYTES 13 % (2-11); NEUTROPHILS 82 % (40-80); PLATELET ESTIMATE INCREASED; ROULEAUX OCC
--- NOTE | 2019-05-04 10:29 | NUR ---
CAROLINA PERDOMO, STARTED IV TO LEFT WRIST. ABX STARTED AND AM MEDS GIVEN. PT DENIES NEEDS. WCMARGE.
[2019-05-04 11:41] VITALS: BP 127/65
--- NOTE | 2019-05-04 13:05 | NUR ---
PT HAD REMOVED DRESSINGS FROM BLE. NEW ADAPTIC AND KERLIX APPLIED.
--- NOTE | 2019-05-04 15:02 | NUR ---
CARE TEAM MEETING: PATIENT SPOUSE, SISTER AND NEICE ATTENDED MEETING. THEIR QUESTIONS AND CONCERNS WERE ADDRESSED. TENATIVE DISCHARGE DATE IS 05/09/19. WILL CONTINUE TO FOLLOW WITH PATIENT AND WILL ASSIST WITH NEEDS. PATIENT WILL BE RA AT NEXT MEETING.
--- NOTE | 2019-05-04 17:28 | NUR ---
PT IN AND OUT CATHETER ATTEMPTED TO GET URINE SAMPLE FOR UA. PT HAD NO URINE IN HER BLADDER AT THIS TIME.
[2019-05-04 18:25] VITALS: BP 131/61
--- NOTE | 2019-05-04 19:59 | NUR ---
THE PATIENT APPEARED TO BE SLEEPING BUT EASILY AWOKE WHEN STAFF ENTERED HER ROOM. BED IS IN THE LOW POSITION WITH SIDERAILS X3 AND CALL LIGHT IS WITHIN REACH. THE PATIENT WAS EDUCATED ON THE USE OF A CALL LIGHT AND DEMONSTRATES UNDERSTANDING VIA TEACHBACK METHOD. THE PATIENT APPEARS COMFORTABLE WITH NO QUESTIONS OR CONCERNS AT THIS TIME.
[2019-05-04 20:23] VITALS: BP 154/75
[2019-05-04 23:56] VITALS: BP 161/91
--- NOTE | 2019-05-05 03:38 | NUR ---
THE PATIENT APPEARS TO BE SLEEPING WITH BED IN THE LOW POSITION, SIDERAILS X2 AND CALL LIGHT WITHIN REACH.
[2019-05-05 06:30] VITALS: BP 142/85
--- NOTE | 2019-05-05 08:09 | NUR ---
PT AM MEDS ADMINSITERD. PT IN THERAPY ROOM EATING BREAKFAST, DENIES NEEDS. WCTM.
[2019-05-05 08:13] VITALS: BP 142/85
[2019-05-05 11:03] LABS: BASOPHILS 0.1 % (0-2); EOSINOPHILS 0.1 % (0-7); HEMATOCRIT 27.3 % (36.0-48.0); HEMOGLOBIN 8.8 g/dL (12-16); IMMATURE GRANULOCYTES 0.7 % (0-5); LYMPHOCYTES 3.6 % (15-50); MCHC 32.2 g/dL (31.0-37.0); MCV 90.1 fL (80.0-100.0); MONOCYTES 4.5 % (2-11); PLATELET COUNT 487 10x3/uL (130-400); RBC 3.03 10x6/uL (4.00-5.40); RDW 16.2 % (11.5-14.5); WBC 25.9 10x3/uL (4.8-10.8)
[2019-05-05 11:06] LABS: ALBUMIN 2.2 g/dL (3.4-5.0); ANION GAP 25.7 mmol/L (8-16); BILIRUBIN - DIRECT 0.55 mg/dL (0.00-0.30); BILIRUBIN - INDIRECT 0.59 mg/dL (0.00-1.00); BILIRUBIN - TOTAL 1.14 mg/dL (0.2-1.3); CALCIUM 9.1 mg/dL (8.5-10.1); CARBON DIOXIDE 21.9 mmol/L (21.0-32.0); PHOSPHOROUS 3.7 mg/dL (2.5-4.9); PROTEIN - SERUM 6.2 g/dL (6.4-8.2)
[2019-05-05 11:07] LABS: CREATININE - SERUM 9.7 mg/dL (0.6-1.3); POTASSIUM - SERUM 4.6 mmol/L (3.5-5.1)
[2019-05-05 12:19] VITALS: BP 111/68
--- NOTE | 2019-05-05 13:33 | NUR ---
PT TAKEN TO DIALYSIS VIA WHEELCHAIR. SENT SODIUM THIOSULFATE AND MERREM WITH PT TO RECEIVE IN DIALSIS.
--- NOTE | 2019-05-05 17:16 | NUR ---
PT EATING DINNER, DENIES NEEDS. WCTM.
[2019-05-05 18:06] VITALS: BP 99/56
[2019-05-05 19:00] VITALS: BP 111/66
--- NOTE | 2019-05-05 19:22 | NUR ---
AWAKE AND ALERT. RESPIRATIONS UNLABORED. RESTING IN BED TALKING WITH VISITORS. DRESSINGS TO BLE'S DRY AND INTACT. RIGHT ARM FISTULA INTACT. NO DISTRESS NOTED. CALL LIGHT IN REACH.
[2019-05-06 00:07] VITALS: BP 159/85
--- NOTE | 2019-05-06 00:40 | NUR ---
RESTING IN BED WITH RESPIRATIONS UNLABORED. NO DISTRESS NOTED. CALL LIGHT IN REACH.
[2019-05-06 06:39] VITALS: BP 136/73
--- NOTE | 2019-05-06 07:15 | NUR ---
RECEIVED REPORT. SITTING UP IN BED ALERT AND ORIENTED X4. DENIES ANY NEEDS OR PAIN. NO SIGNS OF DISTRESS NOTED. CALL LIGHT WITHIN REACH, FALL PRECAUTIONS IN PLACE. WILL CONTINUE TO MONITOR
[2019-05-06 07:23] LABS: CALCIUM 9.2 mg/dL (8.5-10.1); CARBON DIOXIDE 24.5 mmol/L (21.0-32.0); CREATININE - SERUM 8.7 mg/dL (0.6-1.3); PHOSPHOROUS 4.1 mg/dL (2.5-4.9); POTASSIUM - SERUM 4.5 mmol/L (3.5-5.1); VANCOMYCIN - RANDOM 21.7 ug/mL (10.0-20.0)
[2019-05-06 07:54] LABS: HEMATOCRIT 30.4 % (36.0-48.0); HEMOGLOBIN 9.7 g/dL (12-16); MCH 29.1 pg (26.0-34.0); MCHC 31.9 g/dL (31.0-37.0); MCV 91.3 fL (80.0-100.0); MEAN PLATELET VOLUME 10.4 fL (7.4-10.4); PLATELET COUNT 456 10x3/uL (130-400); RBC 3.33 10x6/uL (4.00-5.40); RDW 16.4 % (11.5-14.5); WBC 25.1 10x3/uL (4.8-10.8)
[2019-05-06 08:32] LABS: LYMPHOCYTES 14 % (15-50); MONOCYTES 9 % (2-11); NEUTROPHILS 75 % (40-80)
[2019-05-06 08:33] LABS: ANISOCYTOSIS 1+; HYPOCHROMASIA OCC; PLATELET ESTIMATE INCREASED; ROULEAUX OCC
[2019-05-06 09:00] VITALS: BP 99/72
[2019-05-06 12:00] VITALS: BP 170/63
--- NOTE | 2019-05-06 12:33 | NUR ---
SITTING UP ON SIDE OF BED EATING LUNCH
--- NOTE | 2019-05-06 13:30 | NUR ---
LEFT WRIST IV INFILTRATED D/C WITH CATH TIP INTACT. PRESSURE BANDAGE APPLIED. LEFT FOREARM 22G X1 ATTEMPT FLUSHES AND DRAWS WITHOUT DIFFICULTY. SECURED WITH TEGADERM DRESSING. IV ABX RESTARTED. PT TOLERATED WELL
--- NOTE | 2019-05-06 15:12 | NUR ---
LYING IN BED VISITING WITH FAMILY. DENIES ANY NEEDS OR PAIN. NO SIGNS OF DISTRESS NOTED. CALL LIGHT WITHIN REACH, FALL PRECAUTIONS IN PLACE. WILL CONTINUE TO MONITOR
[2019-05-06 18:31] VITALS: BP 147/76
[2019-05-06 18:44] VITALS: BP 147/76
--- NOTE | 2019-05-06 19:27 | NUR ---
AWAKE AND ALERT. RESTING IN BED WITH RESPIRATIONS UNLABORED. RIGHT FISTULA INTACT. LEFT ARM SALINE LOCK INTACT WITH NO SIGNS OF INFILTRATION. DRESSINGS TO BLE'S DRY INTACT. NO DISTRESS NOTED. CALL LIGHT IN REACH.
[2019-05-07 00:23] VITALS: BP 175/87
--- NOTE | 2019-05-07 02:30 | NUR ---
RESTING IN BED. HAS BEEN UP TO BATHROOM X 2 SO FAR THIS SHIFT AND HAD SMALL BMS. HAS ATTEMPTED TO GET OUT OF BED WITHOUT CALLING FOR ASSISTANCE. REMINDED TO ALWAYS CALL FOR ASSISTANCE BEFORE GETTING OUT OF BED. VOICES UNDERSTANDING.
--- NOTE | 2019-05-07 05:37 | NUR ---
RESTING IN BED. RESPIRATIONS UNLABORED. NO ACUTE CHANGES IN CONDITION THIS SHIFT. NO DISTRESS NOTED.
[2019-05-07 06:25] VITALS: BP 148/82
[2019-05-07 06:45] LABS: HEMATOCRIT 29.6 % (36.0-48.0); HEMOGLOBIN 9.3 g/dL (12-16); MCH 28.6 pg (26.0-34.0); MCHC 31.4 g/dL (31.0-37.0); MCV 91.1 fL (80.0-100.0); MEAN PLATELET VOLUME 9.8 fL (7.4-10.4); PLATELET COUNT 434 10x3/uL (130-400); RBC 3.25 10x6/uL (4.00-5.40); RDW 16.4 % (11.5-14.5)
[2019-05-07 06:57] LABS: ANION GAP 22.9 mmol/L (8-16); BILIRUBIN - DIRECT 0.3 mg/dL (0.00-0.30); BILIRUBIN - INDIRECT 0.56 mg/dL (0.00-1.00); BILIRUBIN - TOTAL 0.86 mg/dL (0.2-1.3); CALCIUM 9.1 mg/dL (8.5-10.1); CARBON DIOXIDE 22.8 mmol/L (21.0-32.0); CREATININE - SERUM 10.1 mg/dL (0.6-1.3); PHOSPHOROUS 4.9 mg/dL (2.5-4.9); POTASSIUM - SERUM 4.7 mmol/L (3.5-5.1); PROTEIN - SERUM 7.1 g/dL (6.4-8.2)
[2019-05-07 07:23] LABS: LYMPHOCYTES 3 % (15-50); MONOCYTES 3 % (2-11); NEUTROPHILS 93 % (40-80); PLATELET ESTIMATE NORMAL
--- NOTE | 2019-05-07 07:23 | NUR ---
ALERT. SITTING ON BED SIDE. ALARM ON. CL IN REACH.
[2019-05-07 07:55] VITALS: BP 146/82
--- NOTE | 2019-05-07 11:10 | NUR ---
SPOKE WITH KODAK NURSE IN DIALYSIS. DIALYSIS WILL GIVE SODIUM THIOSULFATE AND MERMPEM IN DIALYSIS. MEDS AND TUBING SENT WITH PATIENT TO DIALYSIS.
--- NOTE | 2019-05-07 11:51 | NUR ---
IN DIALYSIS AT THIS TIME.
--- NOTE | 2019-05-07 14:17 | NUR ---
RETURNED FROM DIALYSIS
--- NOTE | 2019-05-07 14:19 | NUR ---
DIALYSIS PULLED OFF 700MLS. BP 147/76 HR 72. SODIUM THIOSULFATE AND MERIUM GIVEN IN DIALYSIS. DRINKING PO CONTRAST FOR CT ABD/PELVIS TODAY.
[2019-05-07 14:57] VITALS: BP 111/62
--- NOTE | 2019-05-07 16:26 | NUR ---
NO CHANGE IN ASSESSMENT. ELROY NORRIS. CALLED RADIOLOGY. CL IN REACH. FAMILY AT BS.
--- NOTE | 2019-05-07 17:35 | NUR ---
DIALYSIS TODAY-HAS NOT VOIDED. UNABLE TO OBTAIN URINE SAMPLE.
[2019-05-07 17:56] VITALS: BP 138/61
--- NOTE | 2019-05-07 19:35 | NUR ---
AWAKE AND ALERT RESTING IN BED WITH RESPIRATIONS UNLABORED. RIGHT FISTULA INTACT. HAD HEMODIALYSIS TODAY. LEFT FOREARM SALINE LOCK INTACT WITH NO SIGNS OF INFILTRATION. BLE'S DRESSINGS DRY AND INTACT. FAMILY IN ROOM VISITINTG. NO ACUTE DISTRESS NOTED. CALL LIGHT IN REACH.
[2019-05-07 19:40] VITALS: BP 157/74
[2019-05-08 00:16] VITALS: BP 147/75
--- NOTE | 2019-05-08 01:22 | NUR ---
RESTING IN BED WITH EYES CLOSED AND RESPIRATIONS UNLABORED. NO DISTRESS NOTED. CALL LIGHTIN OWEN.
--- NOTE | 2019-05-08 05:37 | NUR ---
QUIET HOURS. HAD BATH AND LINENS CHANGED. RESTING IN BED WITH NO DISTRESS NOTED.
[2019-05-08 06:08] VITALS: BP 140/70
[2019-05-08 07:37] LABS: HEMATOCRIT 29.7 % (36.0-48.0); HEMOGLOBIN 9.6 g/dL (12-16); MCH 28.9 pg (26.0-34.0); MCHC 32.3 g/dL (31.0-37.0); MCV 89.5 fL (80.0-100.0); MEAN PLATELET VOLUME 9.7 fL (7.4-10.4); PLATELET COUNT 407 10x3/uL (130-400); RBC 3.32 10x6/uL (4.00-5.40); RDW 16.4 % (11.5-14.5); WBC 38.6 10x3/uL (4.8-10.8)
[2019-05-08 07:54] VITALS: BP 130/68
[2019-05-08 07:57] LABS: LYMPHOCYTES 1 % (15-50); MONOCYTES 1 % (2-11); NEUTROPHILS 98 % (40-80)
[2019-05-08 07:58] LABS: PLATELET ESTIMATE NORMAL
--- NOTE | 2019-05-08 08:31 | NUR ---
ALERT AND ORIENTED. NO C/O PAIN. EATING BREAKFAST. CL IN REACH.
[2019-05-08 09:21] LABS: ANION GAP 22.5 mmol/L (8-16); CALCIUM 8.9 mg/dL (8.5-10.1); CARBON DIOXIDE 24.7 mmol/L (21.0-32.0); CREATININE - SERUM 8.1 mg/dL (0.6-1.3); PHOSPHOROUS 4.7 mg/dL (2.5-4.9); POTASSIUM - SERUM 4.2 mmol/L (3.5-5.1); VANCOMYCIN - RANDOM 17.6 ug/mL (10.0-20.0)
--- NOTE | 2019-05-08 09:26 | NUR ---
CALLED PHARMACY FOR ZYVOX. NEW ORDER, NONE ON UNIT.
--- NOTE | 2019-05-08 09:29 | NUR ---
SPOKE TO DR BRADY. WBC 38.6. HE IS AWARE. PATIENT ON MERIPEM AND NOW ZYVOX ORDERED.
--- NOTE | 2019-05-08 10:01 | NUR ---
BP 86/55 HR 60 C/O ABD PAIN. FSBS 436. ORDER TO GIVE REG INSULIN 10 UNITS 1 TIME DOSE. CHANGING FSBS S/S TO Q4 HR PER DR BRADY. WILL DC UPSTAIRS TO DR BRADY. WILL ORDER TELEMETRY. HOLD BP MEDS PER DR BRADY. DR MORIN NOTIFIED. WILL NOTIFY BACTERIOLOGY PROFESSOR, SEND DC PAPERWORK AND WAIT FOR A ROOM ON MED2.
[2019-05-08] MEDS ORDERED: HUMALOG 30100 UNITS/ SC (10:12)
[2019-05-08] MEDS ORDERED: MERREM 500 MG/500 MG IV (10:13)
[2019-05-08] MEDS ORDERED: PROCRIT 202000 UNIT/ SC (10:15)
[2019-05-08] MEDS ORDERED: ZYVOX PREMIX600 MG IV (10:17)
--- NOTE | 2019-05-08 10:17 | NUR ---
FAMILY NOTIFIED OF CHANGE IN CONDITION AND DC TO MED 2. DAUGHTER HERE.
--- NOTE | 2019-05-08 11:14 | NUR ---
REPORT GIVEN TO CHI FIGUEROA. PATIENT TAKEN TO ROOM 2718.
--- NOTE | 2019-05-09 09:17 | NUR ---
LATE ENTRY: PATIENT DISCHARGE FROM REHAB AND ADMITTED TO ACUTE FLOOR(ICU) DUE TO CHANGE IN MEDICAL CONDTION.
== END 2019-05-08 11:23 | disposition short-term general hospital (02) | DRG 91 ==
LOC: D.REHAB 16:04
PROVIDERS: Internal Medicine Nephrology; ADMIT Emergency Medicine; ATTEND Emergency Medicine
DX: G72.89 Other specified myopathies (principal); N18.6 End stage renal disease; I12.0 Hypertensive chronic kidney disease with stage 5 chronic kidney disease or end stage renal disease; K92.2 Gastrointestinal hemorrhage, unspecified; E11.22 Type 2 diabetes mellitus with diabetic chronic kidney disease; D63.1 Anemia in chronic kidney disease; E78.5 Hyperlipidemia, unspecified; R00.1 Bradycardia, unspecified; E03.9 Hypothyroidism, unspecified; R53.83 Other fatigue; R53.81 Other malaise; R53.1 Weakness; K21.0 Gastro-esophageal reflux disease with esophagitis; L89.151 Pressure ulcer of sacral region, stage 1; F32.9 Major depressive disorder, single episode, unspecified

== ENCOUNTER 2019-05-08 11:08 | Inpatient (IN) | payer MEDICARE ==
[2019-05-08] VITALS (11 sets, daily range): BP systolic 84–96; BP diastolic 47–65; BMI 23.8
[~2019-05-08] VITALS: Ht 157.5 cm; Wt 60.5 kg
[~2019-05-08 11:08] MED LIST changes: +HUMALOG 30100 UNITS/ SC; +MERREM 500 MG/500 MG IV; +PROCRIT 202000 UNIT/ SC; +ZYVOX PREMIX600 MG IV
--- NOTE | 2019-05-08 11:40 | NUR ---
RECIEVED PT FROM REHAB. PT IS AWAKE AND ORIENTED, BUT LISTLESS/FLAT IN DEMENOR. SHE ANSWERS QUESTIONS BUT ALSO WILL STARE OFF AND SEEM TO FADE OUT FOR A MOMENT. FAMILY AT [facility]. CL IN REACH
[2019-05-08 13:33] LABS: ALBUMIN 1.9 g/dL (3.4-5.0); ANION GAP 23.9 mmol/L (8-16); BILIRUBIN - TOTAL 0.94 mg/dL (0.2-1.3); CALCIUM 8.9 mg/dL (8.5-10.1); CARBON DIOXIDE 23.5 mmol/L (21.0-32.0); CREATININE - SERUM 8.3 mg/dL (0.6-1.3); MAGNESIUM - SERUM 2.1 mg/dL (1.8-2.4); POTASSIUM - SERUM 4.4 mmol/L (3.5-5.1); PROTEIN - SERUM 5.6 g/dL (6.4-8.2)
--- NOTE | 2019-05-08 13:50 | NUR ---
PT STATES SHE FEELS HOT, PT IS NOT CLAMMY BUT IS WARM TO THE TOUCH, DRY. STATES SHE HAS PAIN IN HER ABD.NOTICED THAT WHEN PT IS BREATHING, SHE BREATHS NORMALLY BUT THEN WILL HAVE A ROLL/BUMP IN HER ABD THAT LOOKS LIKE A HICUP. PT DENIES HAVING HICCUP, DID NTO FEEL MASS/ANYTHING PULSATING WHEN I CHECKED THE AREA. PTS BLOOD SUGAR CHECKED AND WAS 67, TREATED PER WIRE STEWARD ORDER. PT STATES SHE FEELS RESTLESS/ANXIOUS/UNWELL.
--- NOTE | 2019-05-08 14:06 | NUR ---
PT BLOOD SUGAR UP TO 204, PT IS SLEEPING. BLOOD PREASURE 86/42.
[2019-05-08 14:07] LABS: INR 1.21 (0.85-1.17); PROTIME 14.8 SECONDS (11.6-15.0)
[2019-05-08 14:08] LABS: APTT 42.9 SECONDS (22.8-39.4); HEMATOCRIT 27.3 % (36.0-48.0); HEMOGLOBIN 8.7 g/dL (12-16); MCH 28.7 pg (26.0-34.0); MCHC 31.9 g/dL (31.0-37.0); MCV 90.1 fL (80.0-100.0); MEAN PLATELET VOLUME 9.5 fL (7.4-10.4); PLATELET COUNT 395 10x3/uL (130-400); RBC 3.03 10x6/uL (4.00-5.40); RDW 16.4 % (11.5-14.5); WBC 29.3 10x3/uL (4.8-10.8)
--- NOTE | 2019-05-08 14:15 | NUR ---
CALLED HANSEL, SHE SAID TO SEND HER TO ICU FOR HYPOTENTION AND USTABLE DM. SHE WANTS HOURLY BLOOD SUGAR CHECKS.
[2019-05-08 14:35] LABS: MONOCYTES 2 % (2-11); NEUTROPHILS 97 % (40-80); PLATELET ESTIMATE INCREASED; TARGET CELLS 1+
[2019-05-08 14:36] LABS: ROULEAUX OCC
--- NOTE | 2019-05-08 14:48 | NUR ---
ARRIVED TO UNIT AT THIS TIME VIA BED ACCOMPANIED BY HOSPITAL STAFF AND FAMILY. NO ACUTE DISTRESS NOTED. PT APPEARS LETHARGIC, AWAKENS WHEN SPOKEN TO, ABLE TO ANSWER ORIENTATION QUESTIONS APPROPIATELY. WILL CONTINUE TO OBSERVE.
--- NOTE | 2019-05-08 15:34 | NUR ---
SPOKE WITH ADITYA BOND APN, ORDERS RECIEVED.
--- NOTE | 2019-05-08 17:07 | NUR ---
PT UP IN BED EATING SUPPER AT THIS TIME WITH ASSIST FROM DAUGHTER. PHYSICIANS HAVE SPOKEN WITH FAMILY, ALL QUESTIONS AND CONCERNS ADRESSED. NO ACUTE DISTRESS NOTED. WILL CONTINUE TO CLOSELY OBSERVE.
--- NOTE | 2019-05-08 18:57 | NUR ---
NOTED ORDERS FOR IN/OUT CATH TO OBTAIN URINE SPECIMEN. IN/OUT CATH PLACED AND NO URINE NOTED MULTIPLE ATTEMPTS PERFORMED AND STILL NO URINE NOTED. STERILE PROCEDURE USED DURING THIS TIME. NO ACUTE DISTRESS NOTED. WILL CONTINUE PLAN OF CARE.
--- NOTE | 2019-05-08 19:30 | NUR ---
RECEIVED CARE OF PT, ASSESSMENT PER FLOWSHEET. PT WEAK AND LETHARGIC BUT AROUSES TO VOICE AND IS ABLE TO FOLLOW COMMANDS AND ANSWER YES/NO QUESTIONS. HR SR ON CM, PPP, SKIN ASSESSMENT PER FLOWSHEET, LT FA PIV PATENT WITH NS INFUSING PER FLOWSHEET. PT POSITIONED FOR COMFORT SUPPORTED WITH PILLOWS.
--- NOTE | 2019-05-08 21:10 | NUR ---
PT NIECE IN FOR VISITATION, ALL QUESTIONS ANSWERED, UPDATE GIVEN.
--- NOTE | 2019-05-08 23:30 | NUR ---
REASSESSMENT PER FLOWSHEET, NO ACUTE CHANGES NOTED AT THIS TIME, VSS, HR SR
[2019-05-09] VITALS (14 sets, daily range): BP systolic 89–106; BP diastolic 53–64; Ht 157.5 cm; Wt 60.5 kg
--- NOTE | 2019-05-09 01:26 | NUR ---
PT RESTING IN BED WITH EYES CLOSED, VSS, CONT POC.
[2019-05-09 04:17] LABS: BASOPHILS 0 % (0-2); EOSINOPHILS 0 % (0-7); HEMATOCRIT 26.9 % (36.0-48.0); HEMOGLOBIN 8.5 g/dL (12-16); IMMATURE GRANULOCYTES 1.5 % (0-5); LYMPHOCYTES 1.7 % (15-50); MCH 28.4 pg (26.0-34.0); MCHC 31.6 g/dL (31.0-37.0); MEAN PLATELET VOLUME 9.7 fL (7.4-10.4); MONOCYTES 2.1 % (2-11); NEUTROPHILS 94.7 % (40-80); PLATELET COUNT 433 10x3/uL (130-400); RBC 2.99 10x6/uL (4.00-5.40); RDW 16.3 % (11.5-14.5); WBC 39.5 10x3/uL (4.8-10.8)
[2019-05-09 04:24] LABS: ALBUMIN 1.9 g/dL (3.4-5.0); ANION GAP 18.5 mmol/L (8-16); BILIRUBIN - TOTAL 1.36 mg/dL (0.2-1.3); CARBON DIOXIDE 26.7 mmol/L (21.0-32.0); CREATININE - SERUM 8.6 mg/dL (0.6-1.3); PHOSPHOROUS 5.3 mg/dL (2.5-4.9); PROTEIN - SERUM 6.5 g/dL (6.4-8.2)
[2019-05-09 04:30] LABS: POTASSIUM - SERUM 5.2 mmol/L (3.5-5.1)
--- NOTE | 2019-05-09 05:08 | NUR ---
AM LABS REVIEWED, NOTHING TO TREAT PER ELECTROLYTE PROTOCOL.
--- NOTE | 2019-05-09 07:00 | NUR ---
RECEIVED BEDSIDE REPORT ON PATIENT AND ASSUMED CARE OF PATIENT. VSS. IV 20 GA TO LEFT WRIST INFUSING NS AT 30 CC/HR WITH NO S/S OF INFILTRATION. PATIENT LETHARGIC, AROUSES TO VOICE BUT MINIMAL CONVERSATION. IS UNABLE TO TAKE A DRINK OF WATER ATTEMPTS BUT NOT STRONG ENOUGH TO BRING THE WATER UP IN THE STRAW. DR. BRADY IN ROOM ADVISED TO HOLD PO MEDS AND TO GIVE PROTONIX AND SYNTHROID IV. ASLO CONSULTED IR FOR COLD LEFT LEG. HEAD TO TO ASSESSMENT COMPLETED.
--- NOTE | 2019-05-09 07:30 | NUR ---
UNABLE TO OBTAIN DOPPLER SIGNAL TO LEFT PEDAL, LT PT, OR LT POPITAL. DR. BRADY AWARE AND PLACED CONSULT TO IR FOR EVALUATION.
--- NOTE | 2019-05-09 08:00 | NUR ---
PATIENT WITH SMALL SOFT BROWN BM, CLEANED AND LINENS CHANGED. TURNED AND REPOSTIONED.
--- NOTE | 2019-05-09 08:25 | NUR ---
DR. MARQUEZ TALKS TO DAUGHTER AT LENGTH ON PATIENTS CONDITION. DAUGHTER STATES WAITING ON REST OF FAMILY TO ARRIVE, SHOULD BE HERE BY NOON, TO MAKE DECISION REGARDING HOSPICE/COMFORT CARE.
[2019-05-09 08:27] LABS: CREATINE KINASE 186 UL (21-215); LIPASE 312 U/L (73-393)
--- NOTE | 2019-05-09 09:00 | NUR ---
PATIENT TURNED AND REPOSITIONED IN BED.
--- NOTE | 2019-05-09 09:37 | NUR ---
DR. VILLA AT ROOM TO EXAMINE PATIENTS LEFT FOOT/LEG. PATIENTS AND DAUGHTER AT ROOM. UPDATES PATIENT ON OPTIONS. FAMILY AT THIS TIME CONSIDERING HOSPICE/COMFORT CARE. YOUNGEST DAUGHTER IN ROUTE AT THIS TIME TO DISCUSS WITH FAMILY PRIOR TO MAKING DECISION.
--- NOTE | 2019-05-09 10:27 | NUR ---
PATIENTS FAMILY AT BEDSIDE.
--- NOTE | 2019-05-09 10:49 | NUR ---
SPOKE TO PATIENTS FAMILY THEY ARE WANTING TO MAKE PATIENT HOSPICE/COMFORT CARE. DR. BRADY PAGED.
--- NOTE | 2019-05-09 12:27 | NUR ---
CONTACTED HOSPICE REGARDING ORDER FOR INPATIENT HOSPICE CARE. [phone].
--- NOTE | 2019-05-09 13:17 | NUR ---
IRENE ARGUELLES WITH [facility] AT ROOM WITH PATIENTS FAMILY FOR HOSPICE CONSULT FOR ADMISSION TO HOSPICE CARE.
--- NOTE | 2019-05-09 14:02 | NUR ---
PATIENT LINENS CHANGED, DRESSING CHANGED AND WOUNDS CLEANED TO BILATERAL LEGS AND FEET. VSS. PATIENT WITH SMALL BM SOFT FORMED BROWN.
--- NOTE | 2019-05-09 15:07 | NUR ---
PATIENT TURNED AND REPOSITONED IN BED, RESTING COMFORTABLY.
--- NOTE | 2019-05-09 16:06 | MORECARE ---
CASE MANAGEMENT DISCHARGE SUMMARY PATIENT: FRANCES BECKER UNIT: [id number] ADM DATE: 05/08/19 AGE: 68 : 51 SEX: F ROOM/BED: D.2308 AUTHOR: NYLA MASTERSON PHYSICIAN: REFERRING PHYSICIAN: KENDELL BRADY MD DATE OF SERVICE: 05/09/19 Discharge Plan Patient Name: FRANC[facility]EC[facility] [facility] 1950 Planned Disposition: Hospice Medical Facility Anticipated Discharge Date: Discharge Date: Expected LOS: Initial Reviewer: [email or web address] Initial Review Date: 05/09/2019 Generated: 05/09/19 5:06 pm DCPIA - Discharge Planning Initial Assessment Updated by [email or web address]: Bettie Angeles on 05/09/19 3:57 pm * Is the patient Alert and Oriented? No * PCP HEARD * List name and contact numbers for known caregivers / representatives who currently or will assist patient after discharge: MARCELLO, RALEIGH, * Additional services required to return to the preadmission environment? Yes * Can the patient safely return to the preadmission environment? No * Has this patient been hospitalized within the prior 30 days at any hospital? Yes Patient Name: FRANCES BECKER Page [id number] at 1606 All edits/amendments must be made on the electronic document DICTATION DATE: 05/09/19 1605 HOME DELIVERY DRIVER: LATISHA 05/09/19 1605 RPT#: [id number] DC DATE: STATUS: ADM IN [facility] [address] [place] [address] END OF REPORT
--- NOTE | 2019-05-09 16:29 | NUR ---
HOSPICE NURSE ARRIVED TO DO ADMISSION EVALUATION.
--- NOTE | 2019-05-09 17:03 | NUR ---
HOSPICE NURSE AT BEDSIDE WITH FAMILY, VSS. TURNED AND REPOSITIONED IN BED. FSBS - 85. PATIENT RESTING QUIELTY WITH EYES CLOSED.
--- NOTE | 2019-05-09 18:21 | NUR ---
RECEIVED ADMIT ORDERS FROM HILTON FIGUEROA WITH [facility], FAXED TO ADMISSIONS.
--- NOTE | 2019-05-10 08:50 | MORECARE ---
CASE MANAGEMENT DISCHARGE SUMMARY PATIENT: FRANCES BECKER UNIT: [id number] ADM DATE: 05/08/19 AGE: 68 : 52 SEX: F ROOM/BED: D.2308 AUTHOR: NYLA MASTERSNO PHYSICIAN: REFERRING PHYSICIAN: KENDELL BRADY MD DATE OF SERVICE: 05/10/19 Discharge Plan Patient Name: FRANCES BECKER [facility] [facility] 1950 Planned Disposition: Hospice Medical Facility Anticipated Discharge Date: Discharge Date: 05/09/2019 Expected LOS: Initial Reviewer: [email or web address] Initial Review Date: 05/09/2019 Generated: 05/10/19 9:50 am DCPIA - Discharge Planning Initial Assessment Updated by [email or web address]: Bettie Angeles on 05/09/19 3:57 pm * Is the patient Alert and Oriented? No * PCP HEARD * List name and contact numbers for known caregivers / representatives who currently or will assist patient after discharge: RALEIGH ARMENDARIZ, * Additional services required to return to the preadmission environment? Yes * Can the patient safely return to the preadmission environment? No * Has this patient been hospitalized within the prior 30 days at any hospital? Yes Last DP export: 05/09/19 3:06 pm Patient Name: FRANCES BECKER Page 53903 at 0850 All edits/amendments must be made on the electronic document DICTATION DATE: 05/10/19 0849 PROSTHETIC AIDES TEACHER: LATISHA 05/10/19 0849 RPT#: [id number] DC DATE:05/09/19 STATUS: DIS IN [facility] [address] [facility] [place] [address] END OF REPORT
== END 2019-05-09 18:58 | disposition hospice, inpatient (51) | DRG 871 ==
LOC: D.ICU 11:08 → D.M2 11:08 → D.ICU 14:46
PROVIDERS: Internal Medicine Nephrology; ADMIT Internal Medicine Nephrology; ATTEND Internal Medicine Nephrology
DX: A41.9 Sepsis, unspecified organism (principal); R65.21 Severe sepsis with septic shock; K85.90 Acute pancreatitis without necrosis or infection, unspecified; N18.6 End stage renal disease; R53.2 Functional quadriplegia; R40.2214 Coma scale, best verbal response, none, 24 hours or more after hospital admission; I12.0 Hypertensive chronic kidney disease with stage 5 chronic kidney disease or end stage renal disease; K92.2 Gastrointestinal hemorrhage, unspecified; L97.222 Non-pressure chronic ulcer of left calf with fat layer exposed; I95.9 Hypotension, unspecified; E11.22 Type 2 diabetes mellitus with diabetic chronic kidney disease; Z99.2 Dependence on renal dialysis; D63.1 Anemia in chronic kidney disease; I73.9 Peripheral vascular disease, unspecified; E83.59 Other disorders of calcium metabolism; E78.5 Hyperlipidemia, unspecified; E03.9 Hypothyroidism, unspecified; R40.2134 Coma scale, eyes open, to sound, 24 hours or more after hospital admission; R40.2364 Coma scale, best motor response, obeys commands, 24 hours or more after hospital admission; R40.2254 Coma scale, best verbal response, oriented, 24 hours or more after hospital admission; E11.622 Type 2 diabetes mellitus with other skin ulcer; E11.51 Type 2 diabetes mellitus with diabetic peripheral angiopathy without gangrene; I70.209 Unspecified atherosclerosis of native arteries of extremities, unspecified extremity; D64.9 Anemia, unspecified; I25.10 Atherosclerotic heart disease of native coronary artery without angina pectoris; E11.649 Type 2 diabetes mellitus with hypoglycemia without coma

== ENCOUNTER 2019-05-09 18:26 | Inpatient (IN) | payer OTHER ==
[~2019-05-09] VITALS: Ht 157.5 cm; Wt 59.9 kg
--- NOTE | 2019-05-09 19:47 | NUR ---
PATIENT HR DECREASED AND WENT ASYSTOLE WITH NO RESPIRATION NOTED. HOSPICE NOTIFIED AND ARE IN ROUTE. FAMILY AT BEDSIDE.
--- NOTE | 2019-05-09 20:27 | NUR ---
PATIENT POSTMORTUM CARE DONE REPOSITION IN BED PER HOSPICE APPROVAL AND IV STOPPED.
[2019-05-09 20:34] VITALS: BP 66/43; Ht 157.5 cm; Wt 59.9 kg
--- NOTE | 2019-05-09 20:52 | NUR ---
NURSE FROM [facility] IS HERE.
--- NOTE | 2019-05-09 22:20 | NUR ---
HOME HERE TO GET PATIENT, PAPERWORK COMPLETED BY HOME. PATIENT DISCHARGED WITH HOME STAFF AND EXITED ICU DOORS AT THIS TIME.
== END 2019-05-09 22:20 | DRG 951 ==
LOC: D.ICU 18:26
PROVIDERS: ADMIT Legal Medicine; ATTEND Legal Medicine
DX: Z51.5 Encounter for palliative care (principal)